=== PATIENT | female | born 1945 | race Hispanic/Latino ===

== ENCOUNTER 2021-10-16 12:23 | Day surgery (SDC) | payer MEDICARE, OTHER ==
[2021-10-16] MEDS ORDERED: NA CHLORIDE 0.9% 500 ML ONE (12:46)
[2021-10-16] MEDS ORDERED: TETRACAINE HCL 0.5% 4ML OPTH ONE (12:47)
[2021-10-16] MEDS ORDERED: PHENYLEPHRINE 2.5% OPTH 2 ML ONE (12:47)
[2021-10-16] MEDS ORDERED: CYCLOPENTOLATE 1% OPTH 2 ML ONE (12:47)
[2021-10-16] MEDS ORDERED: LIDOCAINE 2% INJ, 20 mL 0 ML ONE (12:53)
[2021-10-16] MEDS ORDERED: CYCLOPENTOLATE 1% OPTH 2 ML OPTH ONE ×3 (12:55→13:05)
[2021-10-16] MEDS ORDERED: PHENYLEPHRINE 10% OPTH 5ML OPTH ONE ×3 (12:55→13:05)
[2021-10-16] MEDS ORDERED: NA CIT/CITRIC AC 30 ML ORAL UDC ONE (13:18)
[2021-10-16] MEDS ORDERED: NA CIT/CITRIC AC 30 ML ORAL UDC PO ONE (13:20)
[2021-10-16] MEDS: TETRACAINE HCL 0.5% 4ML OPTH ONE ×2 (14:10→14:53)
[2021-10-16] MEDS: BUPIVACAINE 0.25% PF 10 ML VIAL ONE ×2 (14:10→14:53)
[2021-10-16] MEDS: LIDOCAINE 2% MPF 5 ML VIAL ONE ×2 (14:11→14:53)
[2021-10-16] MEDS ORDERED: BSS OPTHALMIC SOL 15 ML OPTH ONE (14:24)
[2021-10-16] MEDS ORDERED: POVIDONE-IODINE 5% EYE DROPS ONE (14:24)
[2021-10-16] MEDS ORDERED: DUOVISC 1 KIT OPTH ONE (14:24)
[2021-10-16] MEDS ORDERED: EPINEPHRINE/PF 1 MG/ML AMP ONE (14:24)
[2021-10-16] MEDS ORDERED: BALANCED SALT IRRIG PLAIN 500 ML IRR ONE (14:24)
[2021-10-16] MEDS ORDERED: LIDOCAINE 1% MPF 2 ML AMPULE ONE (14:25)
[2021-10-16] MEDS ORDERED: LIDOCAINE 2% MPF 5 ML VIAL ONE (14:35)
[2021-10-16] MEDS ORDERED: propofoL 200 MG/20 ML VIAL IV ONE (14:35)
[2021-10-16] MEDS ORDERED: HYDRALAZINE HCL 20 MG/ML VIAL ONE (15:13)
[2021-10-16] MEDS ORDERED: MOXIFLOXACIN HCL 10 DROPS/ML **OR USE OPTH ONE (15:23)
[2021-10-16 16:00] VITALS: BP 155/51; TEMP 97.3; O2SAT 97
--- NOTE | 2021-10-17 02:51 | OP ---
Date of Procedure: 10/16/2021 Surgeon: Radha Merida MD Anesthesiologist: Abhishek Tavarez CRNA and Arun Foss MD. 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 Operation Performed: Phacoemulsification with intraocular lens implant, left eye with toric intraocular lens. Anesthesia: Per cataract surgery. Complications: None. Description Of Procedure: In the operating room the patient was prepped and draped in the usual sterile fashion for ophthalmic surgery. A lid speculum was placed in the left eye. Two paracentesis sites were made superiorly and inferiorly in the limbal cornea. Lidocaine 1% preservative free then Viscoat were placed in the anterior chamber.A keratome was used to enter the anterior chamber. A 360 degree capsulotomy was performed with utrata forceps. The lens was hydrodissected with BSS and rotated freely. The lens was removed with a chop technique. 8.88 phaco CDE was used to remove the lens. Residual cortex was removed with the irrigation and aspiration. Provisc was placed in the capsular bag. A ISU188, +17.0 at 61 degrees lens was placed in the capsular bag without complications. Irrigation and aspiration was used to remove residual viscoelastic. The paracentesis sites were hydrated with BSS. The wound and paracentesis sites were inspected and found to be watertight. Vigamox 0.07 cc was placed intracamerally at the end of the procedure. The eye was irrigated with balanced salt solution. The eye was patched with a clear plastic shield. The patient was returned to day surgery in good condition. Comments: Extra Viscoat was used. Discharge Instructions: Ms. Smith is discharged to home in good condition. She is to follow up with Dr. Merida in the morning. ANISA/MODL Voice ID: [id number] Report ID: [id number] MONA
== END 2021-10-16 16:18 | disposition home or self-care (01) ==
LOC: OR 12:23
PROVIDERS: ATTEND Ophthalmology Retina Specialist
PROC: 08RK3JZ Replacement of Left Lens with Synthetic Substitute, Percutaneous Approach (ICD-10-PCS; principal; 2021-10-16 14:00)
DX: H25.812 Combined forms of age-related cataract, left eye (principal); H52.222 Regular astigmatism, left eye; Z20.822 Contact with and (suspected) exposure to COVID-19
CPT/HCPCS: 66984; U0003; J0360; J2704; J0171; J7040

== ENCOUNTER 2021-12-18 19:08 | Emergency (ER) | payer MEDICARE ==
[2021-12-18 20:19] LABS: Urine Blood Negative (Negative); Urine Glucose Negative (Negative); Urine Protein Negative (Negative); Urine pH 7.5 (5.0-7.0)
[2021-12-18] MEDS ORDERED: PANTOPRAZOLE 40 MG INJ ONE (20:22)
[2021-12-18] MEDS ORDERED: NA CHLORIDE 0.9% 1,000 ML ONE (20:22)
--- NOTE | 2021-12-18 21:10 | RAD REPORT ---
EXAM DESCRIPTION: Nadeem Single View12/18/2021 8:21 pm CLINICAL HISTORY: cough COMPARISON: none FINDINGS: The lungs appear clear of acute infiltrate. The heart is normal size IMPRESSION: No acute abnormalities displayed
[2021-12-18 21:18] LABS: Absolute Lymphocytes (CBC) 1.5 K/uL (0.7-4.9); Hematocrit 34.2 % (36.0-45.0); Lymphocytes % 26.6 % (15.3-44.8); MCV 92.8 fL (80-100); MPV 8.5 fL (7.6-11.3); Protime INR 0.96; RBC Red Blood Cell Count 3.68 M/uL (3.86-4.86)
[2021-12-18 21:21] LABS: SARS-CoV-2 Antigen Rapid Res Negative (Negative)
[2021-12-18 21:39] LABS: ALT/SGPT 20 U/L (12-78); AST/SGOT 14 U/L (15-37); Albumin 3.6 g/dL (3.4-5.0); Alkaline Phosphatase 61 U/L (45-117); BUN Blood Urea Nitrogen 13 mg/dL (7-18); Bicarbonate 28 mmol/L (21-32); Bilirubin Total 0.2 mg/dL (0.2-1.0); Glomerular Filtration Rate 85 ml/min (=/>90); Glucose Level 112 mg/dL (74-106); Lipase 343 U/L (73-393); Magnesium 2.4 mg/dL (1.8-2.4); NT PRO-BNP 286 pg/mL (<450); Protein, Total 6.9 g/dL (6.4-8.2); Sodium Level 136 mmol/L (136-145); Troponin High Sensitivity 17.4 pg/mL (<58.9)
[2021-12-18 21:47] LABS: Bilirubin Direct < 0.1 mg/dL (0-0.2)
[2021-12-18] MEDS ORDERED: MAGNES/ALUMIN/SIMET 30ML UCUP ONE (22:11)
[2021-12-18] MEDS ORDERED: CEFTRIAXONE 1000 MG/VIAL ONE (22:12)
[2021-12-18] MEDS ORDERED: LORazepam 2 MG/ML VIAL ONE (22:12)
[2021-12-18] MEDS ORDERED: LIDOCAINE VISCOUS 2% SOLN 15 ML UDC ONE (22:12)
[2021-12-18] MEDS ORDERED: lisinopriL 20 MG TAB ONE (22:15)
[2021-12-18] MEDS ORDERED: CIPROFLOXACIN HCL 500 MG TAB ONE (22:16)
--- NOTE | 2021-12-18 22:35 | ER ---
Nurse's Notes [facility] Name: Gilda Smith Age: 76 yrs Sex: Female : 1945 Arrival Date: 12/18/2021 Time: 19:13 Bed 30 Private MD: Diagnosis: Anxiety disorder, unspecified;Acute gastritis;Essential (primary) hypertension;UTI/ Urinary tract infection, site not specified Presentation: 12/18 19:57 Acuity: TANYA 3 lp1 19:57 Chief complaint: Patient states: Reports feeling like her blood pressure is high, lp1 feeling a continued burning sensation in abdomen, no relief with Pepcid at home; States she has been urinating a lot and feels she is dehydrated. Coronavirus screen: At this time, the client does not indicate any symptoms associated with coronavirus-19. Ebola Screen: No symptoms or risks identified at this time. Initial Sepsis Screen: Does the patient meet any 2 criteria? No. Patient's initial sepsis screen is negative. Does the patient have a suspected source of infection? No. Patient's initial sepsis screen is negative. Risk Assessment: Do you want to hurt yourself or someone else? Patient reports no desire to harm self or others. Onset of symptoms was December 18, 2021. 19:57 Method Of Arrival: Wheelchair lp1 Triage Assessment: 21:05 General: Appears distressed, uncomfortable, Behavior is cooperative, appropriate for eh3 age, anxious. 21:07 Pain: Denies pain. Neuro: Level of Consciousness is awake, alert, obeys commands, eh3 Oriented to person, place, time, situation. Cardiovascular: Capillary refill < 3 seconds Patient's skin is warm and dry. Respiratory: Airway is patent Respiratory effort is even, unlabored. GI: Abdomen is flat, non-distended, Bowel sounds present X 4 quads. Reports constipation, intolerance of food. : No signs and/or symptoms were reported regarding the genitourinary system. Derm: No signs and/or symptoms reported regarding the dermatologic system. Musculoskeletal: Reports cramping in bilateral lower legs. Historical: - Allergies: 19:59 No Known Allergies; lp1 - Home Meds: 19:59 metoprolol tartrate Oral [Active]; losartan oral [Active]; Nifedipine Oral [Active]; lp1 Sucralfate Oral [Active]; famotidine 20 mg Oral tab 1 tab 2 times per day [Active]; - PMHx: 19:59 Hypertension; Hypothyroidism; Myocardial infarction; lp1 - PSHx: 19:59 Heart stents; lp1 - Immunization history:: Adult Immunizations up to date. - Social history:: Smoking status: Patient denies any tobacco usage or history of. Screenin:35 Abuse screen: Denies threats or abuse. Denies injuries from another. Nutritional eh3 screening: No deficits noted. Tuberculosis screening: No symptoms or risk factors identified. Fall Risk IV access (20 points). Gait- Weak (10 pts.). Total Contreras Fall Scale indicates Low Risk Score (25-44 pts). Fall prevention measures have been instituted. Side Rails Up X 2 Placed close to Nursing Station Frequent Obs/Assesments occuring Family Present and informed to notify staff if they need to leave bedside As available Patient and Family Educated on Fall Prevention Program and strategies. Vital Signs: 19:57 BP 180 / 62; Pulse 70; Resp 18; Temp 98.6(O); Pulse Ox 100% on R/A; Weight 49.44 kg lp1 (R); Pain 4/10; 21:04 BP 187 / 68; Pulse 62; Resp 18; Pulse Ox 98% on R/A; eh3 22:12 BP 205 / 69; Pulse 64; Resp 16; Pulse Ox 96% on R/A; ld1 22:39 BP 145 / 64; Pulse 57; Resp 16; Pulse Ox 97% on R/A; eh3 ED Course: 19:13 Patient arrived in ED. ja2 19:40 Carlton Velasquez MD is Attending Physician. mary 19:52 Fartun Lai, NETTE is Primary Nurse. eh3 19:57 Triage completed. lp1 19:57 Arm band placed on. lp1 20:19 Urine Culture Sent. ld1 20:23 XRAY Chest (1 view) In Process Unspecified. EDMS 21:04 SARS RAPID Sent. eh3 21:04 Urine Culture Sent. eh3 21:04 Inserted saline lock: 20 gauge in left antecubital area, using aseptic technique. Blood eh3 collected. 22:33 Vivek Umanzor MD is Referral Physician. mary 22:35 Patient has correct armband on for positive identification. Bed in low position. Call eh3 light in reach. Side rails up X2. 22:35 No provider procedures requiring assistance completed. IV discontinued, intact, eh3 bleeding controlled, No redness/swelling at site. Pressure dressing applied. Administered Medications: 21:04 Drug: NS 0.9% 1000 ml Route: IV; Rate: 125 ml/hr; Site: left antecubital; eh3 21:04 Drug: ProTONIX (pantoprazole) 40 mg Route: IVP; Site: left antecubital; eh3 22:11 Drug: Rocephin (cefTRIAXone) 1 grams Route: IV; Rate: per protocol; Site: left ld1 antecubital; 22:11 Drug: Ativan (LORazepam) 1 mg Route: IVP; Site: left antecubital; ld1 22:12 Drug: GI Cocktail without - (Maalox Suspension 30 ml, Lidocaine Liquid 2 % 15 ld1 ml) Route: PO; Medication: 22:40 VIS not applicable for this client. eh3 Outcome: 22:34 Discharge ordered by MD. hernandez 22:35 Discharged to home via wheelchair. eh3 22:35 Condition: stable 22:41 Discharge instructions given to patient, friend, Instructed on discharge instructions, 3 follow up and referral plans. medication usage, Demonstrated understanding of instructions, follow-up care, medications, Prescriptions given X 4. 22:51 Patient left the ED. eh3 Signatures: Dispatcher [employer] Carlton Crump MD MD cha Pena, Laura, RN RN lp1 Elena French RN RN ld1 Iva Reilly Erin, RN RN 3
--- NOTE | 2021-12-18 22:36 | EDPHYS ---
Physician Documentation [facility] Name: Gilda Smith Age: 76 yrs Sex: Female : 1945 Arrival Date: 12/18/2021 Time: 19:13 Bed 30 Private MD: ED Physician Carlton Velasquez HPI: 12/18 20:16 This 76 yrs old Female presents to ER via Wheelchair with complaints of High mary Blood Pressure, Feels Hot. 20:16 The patient has elevated blood pressure and discovered this at home, with a home mary device. Onset: The symptoms/episode began/occurred 2 day(s) ago. Modifying factors: The symptoms are aggravated by activity, The symptoms are alleviated by remaining still. Associated signs and symptoms: Pertinent positives: nausea. Severity of symptoms: At its worst the blood pressure was moderate, in the emergency department the blood pressure is unchanged. The patient has experienced similar episodes in the past, a few times. Historical: - Allergies: 19:59 No Known Allergies; lp1 - Home Meds: 19:59 metoprolol tartrate Oral [Active]; losartan oral [Active]; Nifedipine Oral [Active]; lp1 Sucralfate Oral [Active]; famotidine 20 mg Oral tab 1 tab 2 times per day [Active]; - PMHx: 19:59 Hypertension; Hypothyroidism; Myocardial infarction; lp1 - PSHx: 19:59 Heart stents; lp1 - Immunization history:: Adult Immunizations up to date. - Social history:: Smoking status: Patient denies any tobacco usage or history of. ROS: 20:17 Constitutional: Negative for fever, chills, and weight loss, Eyes: Negative for injury, mary pain, redness, and discharge, ENT: Negative for injury, pain, and discharge, Neck: Negative for injury, pain, and swelling, Cardiovascular: Negative for chest pain, palpitations, and edema, Respiratory: Negative for shortness of breath, cough, wheezing, and pleuritic chest pain, Back: Negative for injury and pain, : Negative for injury, bleeding, discharge, and swelling, MS/Extremity: Negative for injury and deformity, Skin: Negative for injury, rash, and discoloration, Neuro: Negative for headache, weakness, numbness, tingling, and seizure, Psych: Negative for depression, anxiety, suicide ideation, homicidal ideation, and hallucinations, Allergy/Immunology: Negative for hives, rash, and allergies, Endocrine: Negative for neck swelling, polydipsia, polyuria, polyphagia, and marked weight changes, Hematologic/Lymphatic: Negative for swollen nodes, abnormal bleeding, and unusual bruising. 20:17 Abdomen/GI: Positive for abdominal pain, nausea. Exam: 20:17 Constitutional: This is a well developed, well nourished patient who is awake, alert, mary and in no acute distress. Head/Face: Normocephalic, atraumatic. Eyes: Pupils equal round and reactive to light, extra-ocular motions intact. Lids and lashes normal. Conjunctiva and sclera are non-icteric and not injected. Cornea within normal limits. Periorbital areas with no swelling, redness, or edema. ENT: Nares patent. No nasal discharge, no septal abnormalities noted. Tympanic membranes are normal and external auditory canals are clear. Oropharynx with no redness, swelling, or masses, exudates, or evidence of obstruction, uvula midline. Mucous membranes moist. Neck: Trachea midline, no thyromegaly or masses palpated, and no cervical lymphadenopathy. Supple, full range of motion without nuchal rigidity, or vertebral point tenderness. No Meningismus. Chest/axilla: Normal chest wall appearance and motion. Nontender with no deformity. No lesions are appreciated. Cardiovascular: Regular rate and rhythm with a normal S1 and S2. No gallops, murmurs, or rubs. Normal PMI, no JVD. No pulse deficits. Respiratory: Lungs have equal breath sounds bilaterally, clear to auscultation and percussion. No rales, rhonchi or wheezes noted. No increased work of breathing, no retractions or nasal flaring. Back: No spinal tenderness. No costovertebral tenderness. Full range of motion. Female : Normal external genitalia. Skin: Warm, dry with normal turgor. Normal color with no rashes, no lesions, and no evidence of cellulitis. MS/ Extremity: Pulses equal, no cyanosis. Neurovascular intact. Full, normal range of motion. Neuro: Awake and alert, GCS 15, oriented to person, place, time, and situation. Cranial nerves II-XII grossly intact. Motor strength 5/5 in all extremities. Sensory grossly intact. Cerebellar exam normal. Normal gait. Psych: Awake, alert, with orientation to person, place and time. Behavior, mood, and affect are within normal limits. 20:17 Abdomen/GI: Inspection: abdomen appears normal, Bowel sounds: normal, Palpation: abdomen is soft and non-tender, Rectal exam: is unremarkable, Liver: no appreciated palpable abnormalities, Hernia: not appreciated. 20:19 ECG was reviewed by the Attending Physician. [facility] Vital Signs: 19:57 BP 180 / 62; Pulse 70; Resp 18; Temp 98.6(O); Pulse Ox 100% on R/A; Weight 49.44 kg lp1 (R); Pain 4/10; 21:04 BP 187 / 68; Pulse 62; Resp 18; Pulse Ox 98% on R/A; eh3 22:12 BP 205 / 69; Pulse 64; Resp 16; Pulse Ox 96% on R/A; ld1 22:39 BP 145 / 64; Pulse 57; Resp 16; Pulse Ox 97% on R/A; eh3 MDM: 19:48 Patient medically screened. [facility] 20:18 Differential diagnosis: hypertensive crisis, Malignant HTN, Cholelithiasis, mary pancreatitis, Peptic Ulcer Disease, Pyelonephritis, urinary tract infection. Data reviewed: vital signs, nurses notes, lab test result(s), EKG, radiologic studies, CT scan, plain films. Data interpreted: potline monitor: rate is 70 beats/min, rhythm is regular, Pulse oximetry: on room air. Test interpretation: by ED physician or midlevel provider: ECG, plain radiologic studies. Counseling: I had a detailed discussion with the patient and/or guardian regarding: the historical points, exam findings, and any diagnostic results supporting the discharge/admit diagnosis, lab results, radiology results. 12/18 19:48 Order name: Basic Metabolic Panel; Complete Time: 21:51 [facility] 12/18 19:48 Order name: CBC with Diff; Complete Time: 21:51 [facility] 12/18 19:48 Order name: LFT's; Complete Time: 21:51 [facility] 12/18 19:48 Order name: Magnesium; Complete Time: 21:51 [facility] 12/18 19:48 Order name: NT PRO-BNP; Complete Time: 21:51 [facility] 12/18 19:48 Order name: PT-INR; Complete Time: 21:51 [facility] 12/18 19:48 Order name: Troponin HS; Complete Time: 21:51 [facility] 12/18 19:48 Order name: XRAY Chest (1 view); Complete Time: 21:51 [facility] 12/18 19:48 Order name: Lipase; Complete Time: 21:51 [facility] 12/18 19:48 Order name: Urine Culture [facility] 12/18 19:48 Order name: SARS RAPID; Complete Time: 21:51 [facility] 12/18 20:19 Order name: Urine Dipstick-Ancillary; Complete Time: 21:51 [facility] 12/18 19:48 Order name: EKG; Complete Time: 19:49 [facility] 12/18 19:48 Order name: Cardiac monitoring; Complete Time: 19:52 [facility] 12/18 19:48 Order name: EKG - Nurse/Tech; Complete Time: 20:02 [facility] 12/18 19:48 Order name: IV Saline Lock; Complete Time: 21:03 [facility] 12/18 19:48 Order name: Labs collected and sent; Complete Time: 21:03 [facility] 12/18 19:48 Order name: O2 Per Protocol; Complete Time: 19:52 [facility] 12/18 19:48 Order name: O2 Sat Monitoring; Complete Time: 19:53 [facility] 12/18 19:48 Order name: Urine Dipstick-Ancillary (obtain specimen); Complete Time: 20:19 [facility] EC:19 Rate is 72 beats/min. Rhythm is regular. QRS Murray is Normal. NE interval is normal. QRS mary interval is normal. QT interval is normal. No Q waves. T waves are Normal. No ST changes noted. Clinical impression: Normal ECG, NSR w/ Non-specific ST/T Changes, and No evidence of ischemia. Interpreted by me. Reviewed by me. Administered Medications: 21:04 Drug: NS 0.9% 1000 ml Route: IV; Rate: 125 ml/hr; Site: left antecubital; eh3 21:04 Drug: ProTONIX (pantoprazole) 40 mg Route: IVP; Site: left antecubital; eh3 22:11 Drug: Rocephin (cefTRIAXone) 1 grams Route: IV; Rate: per protocol; Site: left ld1 antecubital; 22:11 Drug: Ativan (LORazepam) 1 mg Route: IVP; Site: left antecubital; ld1 22:12 Drug: GI Cocktail without - (Maalox Suspension 30 ml, Lidocaine Liquid 2 % 15 ld1 ml) Route: PO; Disposition Summary: 12/18/21 22:34 Discharge Ordered Location: Home mary Problem: new mary Symptoms: have improved mary Condition: Stable mary Diagnosis - Anxiety disorder, unspecified mary - Acute gastritis mary - Essential (primary) hypertension mary - UTI/ Urinary tract infection, site not specified mary Followup: mary - With: Private Physician - When: 2 - 3 days - Reason: Recheck today's complaints, Continuance of care, Re-evaluation by your physician Followup: mary - With: Vivek Umanzor MD - When: 2 - 3 days - Reason: Recheck today's complaints, Continuance of care, Re-evaluation by your physician Discharge Instructions: - Discharge Summary Sheet mary - Hypertension, Adult mary - Urinary Tract Infection, Adult mary - Urinary Tract Infection, Adult, [id number] mary - Hypertension, Adult, [id number] mary - How to Take Your Blood Pressure, [id number] mary - Managing Your Hypertension mary - Managing Anxiety, Adult mary Forms: - Medication Reconciliation Form [facility] - Thank You Letter mary - Antibiotic Education mary - Prescription Opioid Use [facility] Prescriptions: - Carafate 1 gram Oral Tablet - take 1 tablet by ORAL route 4 times per day take on an empty stomach, beginning mary on waking and last dose at bedtime; 100 tablet; Refills: 0, Product Selection Permitted - Cipro 250 mg Oral Tablet - take 1 tablet by ORAL route every 12 hours; 14 tablet; Refills: 0, Product mary Selection Permitted - Protonix 40 mg Oral tablet,delayed release (DR/EC) - take 1 tablet by ORAL route every 12 hours; 40 tablet; Refills: 0, Product mary Selection Permitted - Xanax 0.5 mg Oral Tablet - take 1 tablet by ORAL route every 8 hours As needed; 20 tablet; Refills: 0, [facility] Product Selection Permitted Signatures: Dispatcher [employer] EDMS Carlton Velasquez MD MD cha Pena, Laura RN RN lp1 Elena French RN RN ld1 Fartun Lai RN RN eh3 Corrections: (The following items were deleted from the chart) 22:12 20:12 Abdomen Pelvis W [id number].[id number] ordered. EDMS EDMS
[2021-12-19 01:18] VITALS: TEMP 98.6
[2021-12-19 01:28] VITALS: BP 145/64; O2SAT 97
--- NOTE | 2021-12-19 13:50 | EKG ---
Test Date: 2021-12-18 Test Time: 19:59:58 Home Demonstration Agent: SARAH MEASUREMENT RESULTS: Intervals: Rate: 72 DC: 142 QRSD: 84 QT: 400 QTc: 438 [place]: P: 69 DC: 142 QRS: 62 T: 78 INTERPRETIVE STATEMENTS: Normal sinus rhythm with sinus arrhythmia Normal ECG Compared to ECG 06/07/2001 17:27:00 T-wave abnormality no longer present Prolonged QT interval no longer present Electronically Signed On 12-19-21 13:48:40 CDT by Luis Spears
== END 2021-12-18 22:51 | disposition home or self-care (01) ==
LOC: ER 19:08
DX: K29.00 Acute gastritis without bleeding (principal); N39.0 Urinary tract infection, site not specified; I10 Essential (primary) hypertension; F41.9 Anxiety disorder, unspecified; Z20.822 Contact with and (suspected) exposure to COVID-19; E03.9 Hypothyroidism, unspecified; Z95.5 Presence of coronary angioplasty implant and graft
CPT/HCPCS: 93005; 87088; 85025; 87086; 80048; 36415; 83735; 85610; 80076; 81003; 84484; 83690; 83880; 71045; 96375; 96374; 99284; 87811; C9113; J7030; 87077; 87186

== ENCOUNTER 2022-01-06 17:40 | Emergency (ER) | payer MEDICARE ==
--- OUTSIDE RECORDS SUMMARY | 2022-01-06 17:47 | XMS REPORT | Continuity of Care Document ---
:1945 Author Organization [facility] t Address [address] [place] [address] Care Team Providers Name Role Phone HOPE BARCLAY Primary Care Physician Unavailable Catracho Ruiz MD Attending Clinician LIZBETH KAPOOR Attending Clinician Unavailable Cherrie Combs Attending Clinician Unavailable Raymond LAND, William Wall Attending Clinician Bernadette-Mbayo_A_AH Attending Clinician Unavailable Miriam Wright Attending Clinician Iva Aly RN Attending Clinician Unavailable Erik PERDUE, Jadyn Attending Clinician Unavailable Dudley Prado DO Attending Clinician Kati Weeks MD Attending Clinician Antonio Pete MD Attending Clinician Doctor Unassigned, [place] Attending Clinician Unavailable Lokesh Olivier MD Attending Clinician Jermain Javier MD Attending Clinician LIZBETH KAPOOR Admitting Clinician Unavailable Bernadette-Mbayo_A_AH Admitting Clinician Unavailable Antonio Pete MD Admitting Clinician Jermain Javier MD Admitting Clinician Payers Payer Name Policy Type Policy Number Effective Date Expiration Date S kenzie [employer] [id number] 2021 MEDICARE ADVANTAGE 00:00:00 PLAN [employer] [id number] 2020 (MEDICARE 00:00:00 REPLACEMENT HMO) [employer] [place] - [id number] 2019 [place] (MEDICARE 00:00:00 REPLACEMENT/ADVANTA GE - HMO) [employer] [place] [id number] 2019 CLASSIC/VALUE 00:00:00 Problems Condition Condition Condition Status Onset Resolution Last Treating Co mments Source Name Details Category Date Date Treatment Clinician Date Chest pain Chest pain Disease Active U nivers 2-28 ity of 00:00: [place] [facility] Stenosis Stenosis Disease Active Unive rs of right of right 8-25 ity of carotid carotid 00:00: [place] artery artery 00 Medical Branch Hypertensi Hypertensi Disease Active U nivers ve urgency ve urgency 8-24 it y of 00:00: [place] [facility] Hyperlipid Hyperlipid Problem Active C ommon emia, emia, Spirit unspecifie unspecifie - [facility] hyperlipid hyperlipid Daniella [facility] emia type emia type [facility] Essential Essential Problem Active Com mon hypertensi hypertensi Sp ruth on on [facility] Acquired Acquired Problem Active Commo n hypothyroi hypothyroi Sp ruth dism dism [facility] Reflux Reflux Problem Active Common [facility] Difficulty Difficulty Problem Active C ommon sleeping sleeping [facility] Sinus Sinus Problem Active Common problem problem [facility] High High Problem Active Common cholestero cholestero Sp ruth l l [facility] Hyperglyce Hyperglyce Problem Active C ommon rohit rohit [facility] Hypertrigl Hypertrigl Problem Active C ommon yceridemia yceridemia Sp ruth [facility] Vitamin Vitamin Problem Active Common B12 B12 Spirit deficiency deficiency [facility] Rash and Rash and Problem Active Commo n nonspecifi nonspecifi Sp ruth c skin c skin - [facility] eruption eruption [facility] Elevated Elevated Problem Active Commo n vitamin vitamin Spirit B12 level B12 level - CH I [facility] Prediabete Prediabete Problem Active C ommon s s Spirit - CHI [facility] Noncomplia Noncomplia Diagnosis Active Common nce nce Spirit w/medicati w/medicati - [facility] on on [facility] treatment treatment Robert s due to due to Medical intermit intermit Center use of use of medication medication Hospital Hospital Problem Active Commo n discharge discharge Spir it follow-up follow-up - CH I [facility] Counseling Counseling Problem Active C ommon and and Spirit coordinati coordinati - [facility] on of care on of care [facility] Anxiety Anxiety Diagnosis Active Commo n Spirit - [facility] Allergies, Adverse Reactions, Alerts Allergy Allergy Status Severity Reaction(s) Onset Inactive Treating Comm ents Source Name Type Date Date Clinician gemma Adverse Active Info Not Commo n es Reaction Available Spiri t - [facility] NO KNOWN Drug Active Univers ALLERGIE Class ity of S [facility] Social History Social Habit Start Date Stop Date Quantity Comments Source History of Current smoker University of tobacco use [facility] Tobacco use and 2021-12-17 2021-12-17 Smokeless tobacco [facility] exposure 00:00:00 00:00:00 non-user Exposure to 2021-11-26 2021-12-06 Not sure [facility] SARS-CoV-2 00:00:00 17:35:00 [facility] (event) [place] Alcohol intake 2021-10-13 2021-10-13 Ex-drinker [facility] 00:00:00 00:00:00 (finding) Sex [birth year] [facility] 00:00:00 00:00:00 Smoking Status Start Date Stop Date Source Never smoked tobacco [facility] Ex-smoker 2019-12-21 00:00:00 2019-12-21 00:00:00 [facility] Medications Ordered Filled Start Stop Current Ordering Indication Dosage Frequency Signature Comments Components Source Medication Medication Date Date Medication? Clinician (SIG) Name Name clopidogreL Yes 75mg QD Take 1 Meth aubrey (PLAVIX) 75 8-22 tablet (75 st mg tablet 16:25: mg total) Hos juan j 01 by mouth l daily. NIFEdipine 2022-0 Yes 30mg QD Take 1 Metho di ER 8-22 tablet (30 st (PROCARDIA- 16:25: mg total) H ospita XL) 30 MG 01 by mouth l 24 hr daily. tablet famotidine 2021-0 Yes 20mg Q.5D Take 1 Metho di (PEPCID) 20 8-22 tablet (20 st MG tablet 16:25: mg total) Hos juan j 01 by mouth 2 l (two) times a day. losartan 0 Yes 50mg QD Take 1 Methodi (COZAAR) 50 8-22 tablet (50 st MG tablet 16:25: mg total) Hos juan j 01 by mouth l daily. sucralfate 2021-2021- Yes 1g Q.25D Take 1 Met hodi (Carafate) 12-17- tablet (1 st 1 gram 00:00: 04:59 g total) Hospit a tablet 00 :00 by mouth 4 l (four) times a day for 30 days. pantoprazol Yes 40mg 40 mg, Univ ers e 12-07 Slow IV ity of (PROTONIX) 13:00: Push, [place] injection 00 Q12H, Medical 40 mg First dose Branch on [place] 12/07/21 at 0800, Until Discontinu ed metoprolol 0 Yes 50mg Q.5D Take 50 mg M ethodi tartrate 6-[address] (LOPRESSOR) 22:32: (two) Hospi ta 50 mg 03 times a l tablet day. levothyroxi 0 Yes 88ug QD Take 88 Met hodi ne 6-[address] (SYNTHROID) 22:32: mouth Hospi ta 88 mcg 03 daily. l tablet losartan 0 Yes 50mg QD Take 50 mg Met hodi (COZAAR) 50 6-[address] MG tablet 22:32: daily. Hospit a 03 l sucralfate 2021-0 2021- No 1g Q.25D Take 1 Met hodi (Carafate) 6-17 07-18 tablet (1 st 1 gram 00:00: 04:59 g total) Hospit a tablet 00 :00 by mouth 4 l (four) times a day for 30 days. cefTRIAXone 2020-0 2020- No 1000mg 1,000 mg, Univers (ROCEPHIN) 08-18 IV ity of 1,000 mg in 01:00: 12:59 Piggyback, [place] NaCl 0.9% 00 :00 ONCE, 1 Medical (NS) 50 mL dose, [facility] MINI-BAG 08/17/20 at 2000, 50 mL
Reas on for Anti-Infec tive: Documented Infection< br>Documen serenity Infection Site: Urine
D uration of Therapy: 7 days maalox:diph No 15mL 15 mL, Uni vers enhydrAMINE 08-17 Oral, ity of :lidocaine 23:45: 23:45 ONCE, 1 [place] 2 % viscous 00 :00 dose, Wed Med ical 1:1:1 08/17/20 at Branch (FIRST-MOUT 184, [facility]) Routine oral suspension 15 mL ketorolac No 15mg 15 mg, Unive rs (TORADOL) 08-17 Slow IV ity of injection 23:45: 23:45 Push, [place] 15 mg 00 :00 ONCE, 1 Medical dose, [facility] Branch 08/17/20 at 1845, Routine
[employer] membership sales agent approving Restricted medication : MIRIAM ACOSTA dicyclomine No 20mg 20 mg, Uni vers (BENTYL) 08-17 Intramuscu ity of injection 23:45: 23:45 lar, ONCE, [place] 20 mg 00 :00 1 dose, Medical [facility] Branch 08/17/20 at 1845, Routine ondansetron No 4mg 4 mg, Slow Univers (ZOFRAN 08-17 IV Push, ity of (PF)) 23:45: 23:45 ONCE, 1 [place] injection 4 00 :00 dose, [facility] Med ical mg 08/17/20 at Branch 1845, ROMY famotidine No 20mg 20 mg, Univ ers (PEPCID 08-17 Slow IV ity of (PF)) 23:45: 23:45 Push, [place] injection 00 :00 ONCE, 1 Medical 20 mg dose, [facility] 08/17/20 at 1845, ROMY iohexol 2020- No [id number] 100mL 100 mL, U nivers (OMNIPAQUE 08-17 Intravenou it y of 350 22:45: 22:45 s, ONCE, 1 [place] BULK-100 00 :00 dose, Wed Medica l mL) 08/17/20 at [place] injection 1745, 100 mL Routine cephALEXin 2020- No [id number] 500mg Take 1 Univers 500 mg 08-17 capsule by ity of capsule 00:00: 04:59 mouth 2 [place] 00 :00 (two) Medical times [place] daily for 7 days. levothyroxi Yes 75ug 75 mcg, Uni vers ne 3-03 Oral, ity of (SYNTHROID) 12:00: QAM-0600, [place] tablet 75 00 First dose Medi samaria mcg (after [place] last modificati on) on Sat06/29/20 at 0600, Until Discontinu ed rosuvastati Yes 20mg 20 mg, Univ ers n (CRESTOR) 3-03 Oral, QHS, it y of tablet 20 03:00: First [place] mg 00 on Sat06/28/20 at Branch 2100, Until Discontinu ed, Routine levothyroxi Yes [id number] 75ug Take 1 Univers ne 75 mcg 3-03 tablet by ity o f tablet 00:00: mouth [place] 00 every Medical morning. Branch aspirin 81 0 Yes [id number] 81mg Take 1 U nivers mg chewable 3-03 tablet by ity of tablet 00:00: mouth [place] 00 daily. Medical Branch pantoprazol Yes [id number] 40mg Take 1 Univers e 40 mg EC 3-03 tablet by ity of tablet 00:00: mouth [place] 00 daily. Medical Branch losartan 2020-0 Yes [id number] 100mg Take 1 Un sylvia 100 mg 3-03 tablet by ity of tablet 00:00: mouth [place] 00 daily. Medical Branch amLODIPine Yes [id number] 5mg Take 1 U nivers 5 mg tablet 3-03 tablet by ity of 00:00: mouth [place] 00 daily. Medical Branch levothyroxi Yes [id number] 75ug Take 1 Univers ne 75 mcg 3-03 tablet by ity o f tablet 00:00: mouth [place] 00 every Medical morning. Branch aspirin 81 0 Yes [id number] 81mg Take 1 U nivers mg chewable 3-03 tablet by ity of tablet 00:00: mouth [place] 00 daily. Medical Branch pantoprazol 2020-0 Yes [id number] 40mg Take 1 Univers e 40 mg EC 3-03 tablet by ity of tablet 00:00: mouth [place] 00 daily. Medical Branch losartan 2020-0 Yes [id number] 100mg Take 1 Un sylvia 100 mg 3-03 tablet by ity of tablet 00:00: mouth [place] 00 daily. Medical Branch amLODIPine 2020-0 Yes [id number] 5mg Take 1 U nivers 5 mg tablet 3-03 tablet by ity of 00:00: mouth [place] 00 daily. Medical Branch levothyroxi 0 Yes [id number] 75ug Take 1 Univers ne 75 mcg 3-03 tablet by ity o f tablet 00:00: mouth [place] 00 every Medical morning. Branch aspirin 81 0 Yes [id number] 81mg Take 1 U nivers mg chewable 3-03 tablet by ity of tablet 00:00: mouth [place] 00 daily. Medical Branch pantoprazol 0 Yes [id number] 40mg Take 1 Univers e 40 mg EC 3-03 tablet by ity of tablet 00:00: mouth [place] 00 daily. Medical Branch losartan 2020-0 Yes [id number] 100mg Take 1 Un sylvia 100 mg 3-03 tablet by ity of tablet 00:00: mouth [place] 00 daily. Medical Branch amLODIPine 2020-0 Yes [id number] 5mg Take 1 U nivers 5 mg tablet 3-03 tablet by ity of 00:00: mouth [place] 00 daily. Medical Branch levothyroxi 0 Yes [id number] 75ug Take 1 Univers ne 75 mcg 3-03 tablet by ity o f tablet 00:00: mouth [place] 00 every Medical morning. Branch aspirin 81 2020-0 Yes [id number] 81mg Take 1 U nivers mg chewable 3-03 tablet by ity of tablet 00:00: mouth [place] 00 daily. Medical Branch pantoprazol 2020-0 Yes [id number] 40mg Take 1 Univers e 40 mg EC 3-03 tablet by ity of tablet 00:00: mouth [place] 00 daily. Medical Branch losartan 2020-0 Yes [id number] 100mg Take 1 Un sylvia 100 mg 3-03 tablet by ity of tablet 00:00: mouth [place] 00 daily. Medical Branch amLODIPine Yes [id number] 5mg Take 1 U nivers 5 mg tablet 3-03 tablet by ity of 00:00: mouth [place] 00 daily. Medical Branch levothyroxi Yes [id number] 75ug Take 1 Univers ne 75 mcg 3-03 tablet by ity o f tablet 00:00: mouth [place] 00 every Medical morning. Branch aspirin 81 Yes [id number] 81mg Take 1 U nivers mg chewable 3-03 tablet by ity of tablet 00:00: mouth [place] 00 daily. Medical Branch pantoprazol Yes [id number] 40mg Take 1 Univers e 40 mg EC 3-03 tablet by ity of tablet 00:00: mouth [place] 00 daily. Medical Branch losartan Yes [id number] 100mg Take 1 Un sylvia 100 mg 3-03 tablet by ity of tablet 00:00: mouth [place] 00 daily. Medical Branch amLODIPine Yes [id number] 5mg Take 1 U nivers 5 mg tablet 3-03 tablet by ity of 00:00: mouth [place] 00 daily. Medical Branch perflutren 2020- No 3mL 3 mL, IV Un sylvia protein-A 06-28 Push, ity of microsphr 22:15: 16:10 ONCE, 1 [place] (OPTISON) 00 :00 dose, Tue Medic al injection 3 06/28/20 at [facility] mL 1615, Routine Levothyroxi 2020- No 100ug Take 100 Univers ne 100 mcg 06-2802 mcg by ity of capsule 19:40: 00:00 mouth [place] 22 :00 daily. Medical Branch losartan 25 2020- No 25mg Take 25 mg Univers mg tablet 06-28-02 by mouth ity o f 19:40: 00:00 daily. [place] 22 :00 Medical Branch metoprolol 2020- No 25mg Take 25 mg Univers succinate 06-28-02 by mouth ity o f XL 25 mg 24 19:40: 00:00 daily. Jayme as hr tablet 22 :00 Medical Branch magnesium 2021-0 Yes 800mg 800 mg, Univ ers oxide 06-28 Oral, ity of (MAG-OX 19:00: DAILY, [place] 400) tablet 00 First dose Me dical 800 mg on Sat06/28/20 at 1300, Until Discontinu ed, Routine sulfur 2020- No 5mL 5 mL, Univers hexafluorid 06-28 Intravenou i ty of e microsphr 16:00: 16:00 s, ONCE, 1 [place] (LUMASON) 00 :00 dose, Tue Medic al injection 5 06/28/20 at [facility] mL 1000, Routine
[employer]obile [employer] membership sales agent approving Restricted medication : PIORT JUDITH DONNELL LANEMUNA MOHAMED calcium Yes 1{tbl} 250 mg (1 Uni vers carbonate-v 06-28 tablet), ity of itamin D3 15:00: Oral, [place] (OSCAL-250 00 DAILY, Medical + D) First dose Branch 250-125 on Sat mg-unit per 06/28/20 at tablet 250 0900, mg Until Discontinu ed, Routine amLODIPine Yes 5mg 5 mg, Univer s (NORVASC) 06-28 Oral, ity of tablet 5 mg 15:00: DAILY, [place] 00 First dose Medical on Sat06/28/20 at 0900, Until Discontinu ed, Routine losartan Yes 100mg 100 mg, Unive rs (COZAAR) 06-28 Oral, ity of tablet 100 15:00: DAILY, [place] mg 00 First dose Medical (after Branch last modificati on) on Sat06/28/20 at 0900, Until Discontinu ed, Routine KCL 2020- No 30meq 30 mEq, IV Unive rs (POTASSIUM 06-28 Piggyback, it y of CHLORIDE) 14:00: 17:03 ONCE, 1 [place] 30 mEq in 00 :00 dose, Tue Medic al NaCl 0.9% 06/28/20 at [facility] h (NS) 0800, 250 piggyback mL KCL 2020- No 40meq 40 mEq, Univers (KLOR-CON 06-28 Oral, ity of M20) tablet 14:00: 16:45 ONCE, 1 [place] 40 mEq 00 :00 dose, Tue Medical 06/28/20 at Branch 0800, Routine ticagrelor 2020-0 Yes 90mg 90 mg, Unive rs (BRILINTA) 3-02 Oral, BID, ity of tablet 90 02:00: First dose [place] mg 00 on Sat [facility] 06/27/20 at Branch 2000, Until Discontinu ed, Routine metoprolol 2020-0 Yes [id number] 50mg Take 1 U nivers tartrate 50 3-02 tablet by ity of mg tablet 00:00: mouth 2 [place] 00 (two) Medical times Branch daily. rosuvastati 2020-0 Yes [id number] 20mg Take 1 Univers n 20 mg 3-02 tablet by ity of tablet 00:00: mouth at [place] 00 bedtime. Medical Branch ticagrelor 2020-0 Yes [id number] 90mg Take 1 U nivers (BRILINTA) 3-02 tablet by ity of 90 mg 00:00: mouth 2 [place] tablet 00 (two) Medical times Branch daily. metoprolol 2020-0 Yes [id number] 50mg Take 1 U nivers tartrate 50 3-02 tablet by ity of mg tablet 00:00: mouth 2 [place] 00 (two) Medical times Branch daily. rosuvastati 2020-0 Yes [id number] 20mg Take 1 Univers n 20 mg 3-02 tablet by ity of tablet 00:00: mouth at [place] 00 bedtime. Medical Branch ticagrelor 2020-0 Yes [id number] 90mg Take 1 U nivers (BRILINTA) 3-02 tablet by ity of 90 mg 00:00: mouth 2 [place] tablet 00 (two) Medical times Branch daily. metoprolol 2020-0 Yes [id number] 50mg Take 1 U nivers tartrate 50 3-02 tablet by ity of mg tablet 00:00: mouth 2 [place] 00 (two) Medical times Branch daily. rosuvastati 2020-0 Yes [id number] 20mg Take 1 Univers n 20 mg 3-02 tablet by ity of tablet 00:00: mouth at [place] 00 bedtime. Medical Branch ticagrelor 2020-0 Yes [id number] 90mg Take 1 U nivers (BRILINTA) 3-02 tablet by ity of 90 mg 00:00: mouth 2 [place] tablet 00 (two) Medical times Branch daily. metoprolol Yes [id number] 50mg Take 1 U nivers tartrate 50 3-02 tablet by ity of mg tablet 00:00: mouth 2 [place] 00 (two) Medical times Branch daily. rosuvastati Yes [id number] 20mg Take 1 Univers n 20 mg 3-02 tablet by ity of tablet 00:00: mouth at [place] 00 bedtime. Medical Branch ticagrelor Yes [id number] 90mg Take 1 U nivers (BRILINTA) 3-02 tablet by ity of 90 mg 00:00: mouth 2 [place] tablet 00 (two) Medical times Branch daily. metoprolol Yes [id number] 50mg Take 1 U nivers tartrate 50 3-02 tablet by ity of mg tablet 00:00: mouth 2 [place] 00 (two) Medical times Branch daily. rosuvastati Yes [id number] 20mg Take 1 Univers n 20 mg 3-02 tablet by ity of tablet 00:00: mouth at [place] 00 bedtime. Medical Branch ticagrelor Yes [id number] 90mg Take 1 U nivers (BRILINTA) 3-02 tablet by ity of 90 mg 00:00: mouth 2 [place] tablet 00 (two) Medical times Branch daily. ticagrelor 2020- No [id number] 90mg Take 1 Univers 90 mg 3-02 03-02 tablet by ity of tablet 00:00: 00:00 mouth 2 [place] 00 :00 (two) Medical times Branch daily. ticagrelor 2020- No [id number] 90mg Take 1 Univers (BRILINTA) 3-02 03-02 tablet by ity of 90 mg 00:00: 00:00 mouth 2 [place] tablet 00 :00 (two) Medical times Branch daily. adenosine 6 2020- No TITRATE - Univers mg/1000 mL 06-27 FOR ity of INTRACORONA 16:12: 16:12 PROCEDURE [place] RY 29 :29 USE, 1 Medical injection dose, Branch for CATH Starting LAB Sat06/27/20 at 1012, Until Sat06/27/20 at 1012, Routine nitroglycer 2020- No Intravenou Univers in (TRIDIL) 06-27 s, TITRATE i ty of 2 mg in 10 16:11: 16:11 - FOR [place] mL D5W for 14 :14 PROCEDURE Medi samaria Cardiac USE, 1 Branch Cath dose, Starting 06/27/20 at 1011, Until Sat06/27/20 at 1011, Routine tirofiban 2020- No IV Univers (AGGRASTAT) 06-27 Infusion, it y of 5 mg in 100 16:10: 16:10 CONTINUOUS [place] mL NS (RTU) 02 :02 PRN, Medical IV infusion Starting Bran ch 06/27/20 at 1010, Until Sat06/27/20 at 1010 tirofiban 2020- No Intravenou U nivers (AGGRASTAT 06-27 s, TITRATE it y of CONCENTRATE 16:07: 16:07 - FOR [place] ) injection 56 :56 PROCEDURE Med ical USE, 1 Branch dose, Starting Sat06/27/20 at 1007, Until Sat06/27/20 at 1007, Routine adenosine 6 2020- No TITRATE - Univers mg/1000 mL 06-27 FOR ity of INTRACORONA 16:04: 16:04 PROCEDURE [place] RY 15 :15 USE, 1 Medical injection dose, Branch for CATH Starting LAB Sat06/27/20 at 1004, Until Sat06/27/20 at 1004, Routine nitroglycer 2020- No Intravenou Univers in (TRIDIL) 06-27 s, TITRATE i ty of 2 mg in 10 15:54: 15:54 - FOR [place] mL D5W for 39 :39 PROCEDURE Medi samaria Cardiac USE, 1 Branch Cath dose, Starting Sat06/27/20 at 0954, Until Sat06/27/20 at 0954, Routine ticagrelor 2020- No Oral, Unive rs (BRILINTA) 06-27 TITRATE - ity of tablet 15:39: 15:39 FOR [place] 48 :48 PROCEDURE Medical USE, 1 Branch dose, Starting 06/27/20 at 0939, Until Sat06/27/20 at 0939, Routine nitroglycer 2020- No Intravenou Univers in (TRIDIL) 06-27 s, TITRATE i ty of 2 mg in 10 15:26: 15:26 - FOR [place] mL D5W for 01 :01 PROCEDURE Medi samaria Cardiac USE, 1 Branch Cath dose, Starting 06/27/20 at 0926, Until 06/27/20 at 0926, Routine FENTanyl PF 2020- No Slow IV Un sylvia (SUBLIMAZE 06-27 Push, ity of (PF)) 15:22: 15:22 TITRATE - [place] injection 17 :17 FOR Medical PROCEDURE Branch USE, 1 dose, Starting 06/27/20 at 0922, Until 06/27/20 at 0922, Routine midazolam 2020- No IV Push, Uni vers (VERSED) 06-27 TITRATE - ity o f injection 15:22: 15:22 FOR [place] 13 :13 PROCEDURE Medical USE, 1 Branch dose, Starting 06/27/20 at 0922, Until Sat06/27/20 at 0922, Routine lidocaine 2020- No Infiltrati U nivers 1% (PF) 06-27 on, ity of (XYLOCAINE) 15:19: 15:19 TITRATE - [place] injection 24 :24 FOR Medical PROCEDURE Branch USE, 1 dose, Starting Sat06/27/20 at 0919, Until Sat06/27/20 at 0919, Routine FENTanyl PF 2020- No Slow IV Un sylvia (SUBLIMAZE 06-27 Push, ity of (PF)) 15:12: 15:12 TITRATE - [place] injection 12 :12 FOR Medical PROCEDURE Branch USE, 1 dose, Starting 06/27/20 at 0912, Until Sat06/27/20 at 0912, Routine midazolam 2020- No IV Push, Uni vers (VERSED) 06-27 TITRATE - ity o f injection 15:12: 15:12 FOR [place] 05 :05 PROCEDURE Medical USE, 1 Branch dose, Starting Sat06/27/20 at 0912, Until Sat06/27/20 at 0912, Routine aspirin Yes 81mg 81 mg, Univers chewable 06-27 Oral, ity of tablet 81 15:00: DAILY, [place] mg 00 First dose Medical on Sat Branch 06/27/20 at 0900, Until Discontinu ed, Routine levothyroxi No 88ug 88 mcg, Un sylvia ne 06-27 Oral, ity of (SYNTHROID) 12:00: 14:56 QAM-0600, [place] tablet 88 00 :07 First dose Medi samaria mcg (after [place] last modificati on) on 06/27/20 at 0600, Until Discontinu ed atorvastati No 80mg 80 mg, Uni vers n (LIPITOR) 06-27 Oral, QHS, i ty of tablet 80 03:00: 14:58 First dose [place] mg 00 :40 on [facility] 06/26/20 at Branch 2100, Until Discontinu ed, Routine hydrOXYzine No 10mg 10 mg, Uni vers (ATARAX) 06-26 Oral, ity of tablet 10 19:00: 18:44 ONCE, 1 [place] mg 00 :00 dose, [facility] 06/26/20 at Branch 1300, Routine heparin No 12U/kg/ 12 Univer s 25,000 06-2602 h Units/kg/h ity of Units/250 18:41: 00:18 r ?59 kg Jayme as mL 20 :41 (7.08 Medical (Premixed mL/hr), IV Bran ch Bag) in Infusion, 0.45 % NS TITRATE, Parameters in Admin. Instr., Starting [place] 06/26/20 at 1241
CA UTION - If LMWH given in ER, AVOID bolus and start next dose/drip 12 hrs after ER dosage.&nb sp; M ust program rate using programmab le infusion pump.&nbsp ; Luiza ck with the ordering provider first prior to any administra tion should the patient be on existing/a dditional anticoagul ant therapy. Rang e, Dosing and Testing: &nbs p;FOR [facility], AND [facility] ONLY &nbs p; - aPTT < 35: & nbsp;Bolus 5000 units, increase rate 300 units/hr&n bsp; - aPTT 35-44:&nbs p; Kirit lavell 3000 units, increase rate 200 units/hr&n bsp; - aPTT 45-54:&nbs p; In crease rate 100 units/hr&n bsp; - aPTT 55-85:&nbs p;&nbs p;NO CHANGE&nbs p; - aPTT 86-95:&nbs p; De crease rate 100 units/hr&n bsp; - aPTT 96-120:&nb sp; H old 30 minutes, decrease rate 150 units/hr&n bsp; - aPTT > 120: Hold 60 minutes, decrease rate 200 units/hr&n bsp; Check aPTT 6 hours after initiation , then Q6H after every change, aPTT Q12H once therapeuti c levels are reached.&a mp;nbsp;&n bsp; ____ &nbs p; FO [facility] ONLY - aPTT < 40: & nbsp;Bolus 5000 units, increase rate 300 units/hr&n bsp; - aPTT 40-49:&nbs p; Kirit lavell 3000 units, increase rate 200 units/hr&n bsp; - aPTT 50-59:&nbs p; In crease rate 100 units/hr&n bsp; - aPTT 60-85:&nbs p; NO CHANGE&nbs p; - aPTT 86-95:&nbs p; De crease rate 100 units/hr&n bsp; - aPTT 96-120:&nb sp; H old 30 minutes, decrease rate 150 units/hr&n bsp; - aPTT > 120: Hold 60 minutes, decrease rate 200 units/hr&n bsp; Check aPTT 6 hours after initiation , then Q6H after every change, aPTT Q12H once therapeuti c levels are reached.&n bsp; DO NOT ADJUST INITIAL BOLUS OR INITIAL INFUSION RATE.
metoprolol Yes 50mg 50 mg, Unive rs tartrate 06-26 Oral, BID, ity o f (LOPRESSOR) 18:00: First dose [place] tablet 50 00 on [place] Medical mg 06/26/20 at Branch 1200, Until Discontinu ed, Routine HEPARIN No 60U/kg 3,540 Univer s SODIUM 06-26 02-28 Units (60 ity of (PORCINE) 17:45: 18:53 Units/kg Jayme as 1,000 00 :00 ?59 kg), Medical UNIT/ML IV Push, Branch BOLUS ACS ONCE, 1 ORDER SET dose, [place] 06/26/20 at 1145, Routine hydrALAZINE Yes 10mg 10 mg, Univ ers (APRESOLINE 06-26 Oral, ity of ) tablet 10 15:22: Q6HPRN, Jayme as mg 16 Starting Medical Pending Sale To [facility] 06/26/20 at 0922, Until Discontinu ed, Routine, sbp > 180 , dbp > 110 pantoprazol Yes 40mg 40 mg, Univ ers e 06-26 Oral, ity of (PROTONIX) 15:00: DAILY, [place] EC tablet 00 First dose Medi samaria 40 mg on [place] Branch 06/26/20 at 0900, Until Discontinu ed, Routine simethicone Yes 80mg 80 mg, Univ ers (GAS RELIEF 06-26 Oral, ity of (SIMETHICON 15:00: PC+HS, [place] E)) 00 First dose Medical chewable on [place] Branch tablet 80 06/26/20 at mg 0900, Until Discontinu ed, Routine losartan No 50mg 50 mg, Univer s (COZAAR) 2-06-27 Oral, ity of tablet 50 15:00: 16:43 DAILY, [place] mg 00 :13 First dose Medical on Pending Sale To [facility] 06/26/20 at 0900, Until Discontinu ed, Routine dicyclomine Yes 10mg 10 mg, Univ ers (BENTYL) 06-26 Oral, QID, ity o f capsule 10 14:00: [place] 00 on [facility] 06/26/20 at Branch 0800, Until Discontinu ed, Routine levothyroxi 2020- No 100ug 100 mcg, Univers ne 06-26 Oral, ity of (SYNTHROID) 12:00: 14:17 QAM-0600, [place] tablet 100 00 :58 First dose Med ical mcg on Pending Sale To [facility] 06/26/20 at 0600, Until Discontinu ed acetaminoph Yes 650mg 650 mg, Un sylvia en 06-26 Oral, ity of (TYLENOL) 10:11: Q6HPRN, [place] tablet 650 44 Starting Medic al mg Pending Sale To [facility] 06/26/20 at 0411, Until Discontinu ed, Routine, Pain (scale 1-3) alum-mag 2020- No 30mL 30 mL, Univer s hydroxide-s 06-26 Oral, ity of imeth 07:15: 06:09 ONCE, 1 [place] (MAALOX 00 :00 dose, [facility] PLUS / 06/26/20 at [place] MAG-AL 0115, ROMY PLUS) 200-200-20 mg/5 mL suspension 30 mL iohexol 2020- No 120mL 120 mL, Unive rs (OMNIPAQUE 06-26 Intravenou it y of 350 05:00: 04:40 s, ONCE, 1 [place] BULK-100 00 :00 dose, Sat Medica l mL) 06/25/20 at [place] injection 2300, 120 mL Routine ondansetron 2020- No 4mg 4 mg, Slow Univers (ZOFRAN 06-26 IV Push, ity of (PF)) 04:45: 03:55 ONCE, 1 [place] injection 4 00 :00 dose, Sat Med ical mg 06/25/20 at Branch 2245, Routine nitroglycer 2021-0 Yes .4mg 0.4 mg, Uni vers in 2- Sublingual ity of (NITROSTAT) 04:19: , Q5MIN Jayme as sublingual 12 PRN, Medical tablet 0.4 Starting Branc h mg 06/25/20 at 2219, Until Discontinu ed, Routine, Chest pain lisinopriL 2019-0 2020- No [id number] 10mg Take 1 Univers 10 mg 12-22 tablet by ity of tablet 00:00: 04:59 mouth [place] 00 :00 daily for Medical 30 days. Branch lisinopriL 2019-0 2020- No [id number] 10mg Take 1 Univers 10 mg 12-22 tablet by ity of tablet 00:00: 04:59 mouth [place] 00 :00 daily for Medical 30 days. Branch Levothyroxi 2019-0 Yes 100ug Take 100 U nivers ne 100 mcg 8-25 mcg by ity of capsule 23:54: mouth [place] 40 daily. Medical Branch Levothyroxi 2019-0 Yes 100ug Take 100 U nivers ne 100 mcg 8-25 mcg by ity of capsule 23:54: mouth [place] 40 daily. Medical Branch Levothyroxi 2019-0 Yes 100ug Take 100 U nivers ne 100 mcg 8-25 mcg by ity of capsule 23:54: mouth [place] 40 daily. Medical Branch metoprolol 2019-0 2020- No 25mg Take 25 mg Univers succinate 8-25 08-25 by mouth ity o f XL 25 mg 24 23:06: 00:00 daily. Jayme as hr tablet 53 :00 Medical Branch lisinopriL 2019-0 Yes 10mg 10 mg, Unive rs (PRINIVIL,Z 8-25 Oral, ity of ESTRIL) 14:00: DAILY, [place] tablet 10 00 First dose Medi samaria mg on [facility] 12/22/19 at 0900, Until Discontinu ed, Routine carvediloL 2019-0 Yes 25mg 25 mg, Unive rs (COREG) 8-25 Oral, BID ity of tablet 25 13:00: MEALS, [place] mg 00 First dose Medical on [facility] 12/22/19 at 0800, Until Discontinu ed, Routine levothyroxi 2019-0 Yes 100ug 100 mcg, U nivers ne 8-25 Oral, ity of (SYNTHROID) 11:00: QAM-0600, [place] tablet 100 00 First dose Med ical mcg on Sat Branch 12/22/19 at 0600, Until Discontinu ed ALPRAZolam Yes .25mg 0.25 mg, Un sylvia (XANAX) 8-25 Oral, ity of tablet 0.25 01:40: QHSPRN, [place] mg 55 Starting Medical Mon Branch 12/21/19 at 2040, Until Discontinu ed, Routine, anxiety carvediloL 2019- No [id number] 25mg Take 1 Univers 25 mg 8-21 01- tablet by ity of tablet 00:00: 04:59 mouth 2 [place] 00 :00 (two) Medical times [place] daily with meals for 30 days. citalopram 2019- No [id number] 10mg Take 1 Univers (CELEXA) 10 12-21 tablet by it y of mg tablet 00:00: 04:59 mouth [place] 00 :00 daily for Medical 30 days. Branch carvediloL 2019- No [id number] 25mg Take 1 Univers 25 mg 12-21- tablet by ity of tablet 00:00: 04:59 mouth 2 [place] 00 :00 (two) Medical times [place] daily with meals for 30 days. citalopram 2019- No [id number] 10mg Take 1 Univers (CELEXA) 10 12-21 tablet by it y of mg tablet 00:00: 04:59 mouth [place] 00 :00 daily for Medical 30 days. Branch HYDROcodone 2020- No 1{tbl} 1 tablet, Univers -acetaminop 12-20 Oral, ity of hen (NORCO 23:47: 23:46 Q6HPRN, [place] as 5) 5-325 mg 34 :34 Starting Medi samaria tablet 1 Mon Branch tablet 12/21/19 at 1847, Until 12/23/19 at 1846, Routine, Pain (scale 4-6) acetaminoph 0 Yes 650mg 650 mg, Un sylvia en 12-20 Oral, ity of (TYLENOL) 23:47: Q6HPRN, [place] tablet 650 29 Starting Medic al mg Mon Branch 12/21/19 at 1847, Until Discontinu ed, Routine, Pain (scale 1-3) LORazepam 2020-0 2020- No .5mg 0.5 mg, Univ ers (ATIVAN) 12-20 Slow IV ity of injection 23:15: 22:14 Push, [place] 0.5 mg 00 :00 ONCE, 1 Medical dose, [facility] 12/21/19 at 1815, STAT labetaloL 2019-0 2020- No 10mg 10 mg, Unive rs (NORMODYNE) 12-20 Slow IV ity of injection 22:30: 22:24 Push, [place] 10 mg 00 :00 ONCE, 1 Medical dose, [facility] 12/21/19 at 1730, ROMY hydralAZINE 2019-0 Yes 10mg 10 mg, Univ ers (APRESOLINE 12-20 Intravenou it y of ) injection 22:22: s, Q4HPRN, [place] 10 mg 35 Starting Medical [facility] 12/21/19 at 1722, Until Discontinu ed, Routine, SBP > 180, DBP > 110 labetaloL 2019-0 2020- No 10mg 10 mg, Unive rs (NORMODYNE) 12-20 Slow IV ity of injection 21:15: 20:24 Push, [place] 10 mg 00 :00 ONCE, 1 Medical dose, [facility] 12/21/19 at 1615, ROMY acetaminoph 2019-0 2020- No 975mg 975 mg, U nivers en 12-20 Oral, ity of (TYLENOL) 21:15: 20:23 ONCE, 1 [place] tablet 975 00 :00 dose, Mon Medi samaria mg 12/21/19 at Branch 1615, ROMY ondansetron 2019-0 2020- No 4mg 4 mg, Slow Univers (ZOFRAN 12-20 IV Push, ity of (PF)) 21:15: 20:23 ONCE, 1 [place] injection 4 00 :00 dose, Mon Med ical mg 12/21/19 at Branch 1615, ROMY Metoprolol Metoprolol 2020-0 Yes Katheryn 1 tablet Common Succinate Succinate 8-14 [facility]: - [facility] 00 [facility] metoprolol 2020-0 Yes 25mg QD Take 1 Metho di succinate 8-14 tablet (25 st XL 00:00: mg total) [facility]osp[facility] (TOPROL-XL) 00 by mouth l 25 mg 24 hr daily. tablet Trazodone Trazodone 2019-0 Yes Katheryn 1/2 to 1 Common HCl HCl 2-12 [place] tablet at Spiri t 00:00: bedtime as - [facility] 00 needed for [facility] Levothyroxi Levothyroxi Yes Katheryn 1 tablet Common ne Sodium ne Sodium [facility] on an Spirit empty - [facility] stomach in [facility] B-12 B-12 Yes Katheryn as Common [facility]ender directed [facility] Losartan Losartan Yes Katheryn 1 tablet Co mmon Potassium Potassium Mill[facility] Calcium Calcium Yes Katheryn 1 tab Common [facility] Lisinopril Lisinopril Yes Katheryn 1 tablet Common [facility] Celexa Celexa Yes Katheryn 1 tablet Common [facility] Coreg Coreg Yes Katheryn 1 tablet Common Millender with food Spiri t - [facility] Vital Signs Vital Name Observation Time Observation Value Comments Source Systolic blood 2021-12-07 01:00:00 151 [facility]Hg[facility] 2021-12-07 01:00:00 59 mm[Hg] Unive [facility] Heart rate 2021-12-07 01:00:00 87 /min [facility] Respiratory rate 2021-12-07 01:00:00 11 /min [facility] Oxygen saturation in 2021-12-07 00:44:00 100 /min [facility] Arterial blood by [facility] Pulse oximetry Branch Body temperature 2021-12-06 23:10:54 36.72 [facility] Body height 2021-12-06 22:34:00 157.5 cm [facility] Body weight 2021-12-06 22:34:00 47.628 kg [facility] BMI 2021-12-06 22:34:00 19.20 kg/m2 [facility] Systolic blood 2020-08-17 22:34:24 166 mm[Hg] Univer sity [facility] Diastolic blood 2020-08-17 22:34:24 88 mm[Hg] Unive rsity of pressure [place] [facility] Heart rate 2020-08-17 22:34:24 81 /min [facility] [place] [facility] Body temperature 2020-08-17 22:34:24 36.89 [facility] [place] [facility] Respiratory rate 2020-08-17 22:34:24 18 /min Univ ers[facility] [place] [facility] Oxygen saturation in 2020-08-17 22:34:24 98 /min University of Arterial blood by [facility] Pulse oximetry Branch Body height 2020-08-17 20:04:00 157.5 cm [facility] [place] [facility] Body weight 2020-08-17 20:04:00 58.06 kg [facility] [place] [facility] BMI 2020-08-17 20:04:00 23.41 kg/m2 [facility] [place] [facility] Systolic blood 2020-06-28 22:20:00 154 mm[Hg] Univer sity of pressure [place] [facility] Diastolic blood 2020-06-28 22:20:00 62 mm[Hg] Unive rsity of pressure [place] [facility] Heart rate 2020-06-28 22:20:00 70 /min [facility] [place] [facility] Body temperature 2020-06-28 22:20:00 36.5 [facility] [place] [facility] Respiratory rate 2020-06-28 22:20:00 18 /min Univ ers[facility] [place] [facility] Oxygen saturation in 2020-06-28 22:20:00 96 /min University of Arterial blood by [facility] Pulse oximetry Branch Body weight 2020-06-28 11:35:00 59.875 kg [facility] [place] [facility] BMI 2020-06-28 11:35:00 24.14 kg/m2 [facility] [place] [facility] Body height 2020-06-28 02:33:00 157.5 cm [facility] [place] [facility] Systolic blood 2019-12-22 22:20:00 162 mm[Hg] Univer sity of pressure [place] [facility] Diastolic blood 2019-12-22 22:20:00 60 mm[Hg] Unive rsity of pressure [place] [facility] Heart rate 2019-12-22 22:20:00 63 /min [facility] [place] [facility] Body temperature 2019-12-22 22:20:00 36.72 [facility] Respiratory rate 2019-12-22 22:20:00 20 /min [facility] Oxygen saturation in 2019-12-22 22:20:00 96 /min University Arterial blood by [facility] Pulse oximetry Branch Body weight 2019-12-22 09:45:00 66.707 kg [facility] Systolic blood 2021-12-17 19:53:38 137 mm[Hg] [facility] pressure Diastolic blood 2021-12-17 19:53:38 66 [facility]Hg[facility] Heart rate 2021-12-17 19:53:38 94 /min [facility] Body temperature 2021-12-17 19:53:38 37 [facility] Respiratory rate 2021-12-17 19:53:38 18 /min [facility] Oxygen saturation in 2021-12-17 19:53:38 98 /min [facility] Arterial blood by Pulse oximetry Body height 2021-12-17 19:51:00 157.5 cm [facility] Body weight 2021-12-17 19:51:00 49.442 kg [facility] BMI 2021-12-17 19:51:00 19.94 kg/m2 [facility] Systolic blood 2021-10-14 03:00:00 197 mm[Hg] Method [facility] pressure Diastolic blood 2021-10-14 03:00:00 86 mm[Hg] [facility] Heart rate 2021-10-14 03:00:00 63 /min [facility] Respiratory rate 2021-10-14 03:00:00 18 /min [facility] Oxygen saturation in 2021-10-14 03:00:00 96 /min [facility] Arterial blood by Pulse oximetry Body temperature 2021-10-13 21:33:00 37.11 [facility] Body height 2021-10-13 21:33:00 154.9 cm [facility] Body weight 2021-10-13 21:33:00 51.71 kg [facility] BMI 2021-10-13 21:33:00 21.54 kg/m2 [facility] Procedures Procedure Date / Time Performing Clinician Source Performed HC COMPLETE BLD COUNT 2021-12-17 20:27:00 [facility] W/AUTO DIFF COMPREHENSIVE METABOLIC 2021-12-17 20:27:00 [facility] PANEL LACTIC ACID LEVEL, SEPSIS 2021-12-17 20:27:00 [facility] - NOW AND REPEAT 2X EVERY 3 HOURS LIPASE LEVEL 2021-12-17 20:27:00 [facility] TROPONIN T 2021-12-17 20:27:00 [facility] ESTIMATED GFR 2021-12-17 20:27:[address] [facility] [address] ABDOMEN PELVIS WO 2021-12-17 20:25:32 [facility] CONTRAST EKG-12 LEAD 2021-12-07 02:06:33 [facility] TROPONIN I 2021-12-06 23:55:00 [facility] COMP. METABOLIC PANEL 2021-12-06 23:55:00 Lizbeth Kapoor [facility] ([id number]) [facility] CBC WITH DIFF 2021-12-06 23:55:00 [facility] N-TERMINAL PRO-BNP 2021-12-06 23:55:00 Lizbeth Kapoor [facility] XR CHEST 1 VW 2021-12-06 23:18:43 Lizbeth Kapoor [facility] URINALYSIS 2021-12-06 23:18:00 Lizbeth Kapoor [facility] CONSENT/REFUSAL FOR 2021-12-06 22:34:50 Doctor Unassigned, [facility] DIAGNOSIS AND TREATMENT [place] [facility] ED REFERRAL TO [facility] 2021-10-14 04:12:06 William Brooke [facility] BUDDHIST PHYSICIAN ORGANIZATION ECG ED PRELIMINARY 2021-10-14 03:32:00 William Brooke [facility] INTERPRETATION ED REFERRAL TO [facility] 2021-10-14 03:16:17 William Brooke [facility] BUDDHIST PHYSICIAN ORGANIZATION URINE CULTURE 2021-10-14 02:27:00 Raymond, [facility] URINALYSIS SCREEN AND 2021-10-14 02:27:00 [facility] WITH REFLEX TO CULTURE CT ABDOMEN PELVIS W 2021-10-14 00:50:40 [facility] CONTRAST HC COMPLETE BLD COUNT 2021-10-13 22:26:00 William Brooke [facility] W/AUTO DIFF COMPREHENSIVE METABOLIC 2021-10-13 22:26:00 William Brooke [facility] PANEL MAGNESIUM LEVEL 2021-10-13 22:26:00 [facility] ACID LEVEL, SEPSIS 2021-10-13 22:26:[address] [facility] - NOW AND REPEAT 2X EVERY 3 HOURS LIPASE LEVEL 2021-10-13 22:26:00 William Brooke [facility] ESTIMATED GFR 2021-10-13 22:26:00 Raymond [facility] ECG 12-LEAD 2021-10-13 22:02:57 William Brooke [facility] URINALYSIS 2020-08-17 23:20:00 Dave [facility] XR CHEST 1 VW 2020-08-17 [facility]:01[facility] PELVIS W 2020-08-17 22:57:29 Miriam Acosta [facility] CONTRAST [facility] Branch LIPASE 2020-08-17 21:55:00 Eduardo Lyn [facility] TROPONIN I 2020-08-17 21:55:00 Eduardo Lyn [facility] HEPATIC FUNCTION PANEL 2020-08-17 21:55:00 Eduardo Lyn [facility] ([id number]) (ALB,T.PRO,BILI Medical Branch T,BU/BC,ALT,AST,ALK PHOS) BASIC METABOLIC PANEL 2020-08-17 21:55:00 [facility] (NA, K, CL, CO2, GLUCOSE, Medica l Branch BUN, CREATININE, CA) CBC WITH DIFF 2020-08-17 21:55:00 Eduardo Lyn [facility] PROTHROMBIN TIME / INR 2020-08-17 21:55:00 Eduardo Lyn [facility] ACTIVATED PARTIAL 2020-08-17 21:55:00 Eduardo Lyn [facility] ASSIGNMENT OF BENEFITS 2020-08-17 19:57:46 Doctor Unassigned, [facility] [place] [facility] [place] CONSENT/REFUSAL FOR 2020-08-17 19:56:45 Doctor Unassigned, [facility] DIAGNOSIS AND TREATMENT [place] [facility] ECHO ROUTINE W/DOPPLER 2020-06-28 15:41:59 [facility] MAGNESIUM 2020-06-28 11:40:00 Shaikh [facility] BASIC METABOLIC PANEL 2020-06-28 11:40:00 [facility] ([facility], K, CL, CO2, GLUCOSE, Medica l Branch BUN, CREATININE, CA) POCT ACT LOW RANGE 2020-06-27 16:07:00 Kati Weeks [facility] POCT ACT LOW RANGE 2020-06-27 15:36:00 Kati Weeks [facility] HB ECG ROUTINE & RHYTHM 2020-06-27 13:32:25 Concepcion Perez [facility] MAGNESIUM 2020-06-27 11:53:00 [facility] BAS[facility] METABOLIC PANEL 2020-06-27 11:53:00 [facility] (NA, K, CL, CO2, GLUCOSE, Medica l Branch BUN, CREATININE, CA) TROPONIN I 2020-06-27 03:16:00 [facility] PART[facility] 2020-06-27 03:16:00 Mitch Spence [facility] TROPONIN I 2020-06-26 22:15:00 [facility] IRON PANEL 2020-06-26 22:15:00 Shaikh [facility] URINE DRUG (IMMUNOASSAY) 2020-06-26 21:39:00 [facility] SCREEN TROPONIN I 2020-06-26 19:17:00 [facility] HB ECG ROUTINE & RHYTHM 2020-06-26 14:13:23 Mitch Spence [facility] STRIP [facility] PHOSPHORUS 2020-06-26 12:43:00 [facility] MAGNESIUM 2020-06-26 12:43:00 [facility] FERRITIN SERUM 2020-06-26 12:43:00 [facility] TROPONIN I 2020-06-26 12:43:00 [facility] THYROID STIMULATING 2020-06-26 12:43:00 Concepcion Perez [facility] HORMONE [facility] BASIC METABOLIC PANEL 2020-06-26 12:43:00 Concepcion Perez [facility] (NA, K, CL, CO2, GLUCOSE, Medica l Branch BUN, CREATININE, CA) PROTHROMBIN TIME / INR 2020-06-26 12:43:00 Concepcion Perez [facility] ACTIVATED PARTIAL 2020-06-26 12:43:00 Concepcion Perez [facility] THRMPLAS [facility] N-TERMINAL PRO-BNP 2020-06-26 12:43:00 Concepcion Perez [facility] FREE T4 2020-06-26 11:20:00 [facility] LIPID PANEL ([id number])(TOTAL 2020-06-26 11:20:00 Concepcion Perez [facility] CHOLESTEROL, [facility] TRIGLYCERIDES, HDL) GLYCOSYLATED HEMOGLOBIN 2020-06-26 11:20:00 Concepcion Perez [facility] (A1C) [facility] HB ECG ROUTINE & RHYTHM 2020-06-26 11:00:38 Concepcion Perez [facility] XR CHEST 1 VW 2020-06-26 10:35:00 [facility] ABDOMEN PELVIS W 2020-06-26 04:45:33 Singer [facility] CONTRAST Medical Branch COVID-19 (ID NOW RAPID 2020-06-26 04:26:00 Singer [facility] TESTING) Medical Branch LIPASE 2020-06-26 03:45:00 Singer [facility] TROPONIN I 2020-06-26 03:45:00 Singer [facility] COMP. METABOLIC PANEL 2020-06-26 03:45:00 Singer [facility] ([id number]) Medical Branch CBC WITH DIFF 2020-06-26 03:45:00 Singer [facility] URINALYSIS 2020-06-26 03:45:00 Singer [facility] HB ECG ROUTINE & RHYTHM 2020-06-26 03:31:06 Singer [facility] STRIP Medical Branch CONSENT/REFUSAL FOR 2020-06-26 03:28:09 Doctor Unassdarryl, [facility] DIAGNOSIS AND TREATMENT [place] [facility] [place] HOSPITAL ADMISSION 2020-06-25 06:01:00 Doctor Cynthia, [facility] AUTHORIZATION FOR RELEASE 2020-01-06 05:01:00 Doctor Unatritsan, [facility] Medical [place] ECHO ROUTINE W/DOPPLER 2019-12-22 15:03:59 Olivia Tobias [facility] COLOR [facility] CAROTID DUPLEX BILATERAL 2019-12-22 14:35:53 Olivia Tobias [facility] BY VASCULAR LAB [facility] Branch TROPONIN I 2019-12-22 08:59:00 Olivia Tobias [facility] BASIC METABOLIC PANEL 2019-12-22 08:59:00 Jermain Javier [facility] (NA, K, CL, CO2, GLUCOSE, Medica l Branch BUN, CREATININE, CA) CBC WITH DIFF 2019-12-22 08:59:00 Jermain Javier [facility] FOLATE 2019-12-22 03:00:00 Olivia Tobias [facility] TROPONIN I 2019-12-22 03:00:00 Jatinder, Olivia [facility] IRON PANEL 2019-12-22 03:00:00 Jatinder [facility] COVID-19 (ID NOW RAPID 2019-12-21 22:22:[address] [facility] TEST[facility]) Medical Branch CRITICAL CARE 2019-12-21 22:20:22 Lokesh Olivier [facility] URINALYSIS 2019-12-21 21:59:00 Lokesh Olivier [facility] CT HEAD WO CONTRAST 2019-12-21 21:35:00 Lokesh Olivier [facility] FERRITIN SERUM 2019-12-21 20:16:00 Jatinder [facility] TROPONIN I 2019-12-21 20:16:00 Lokesh Olivier [facility] THYROID STIMULATING 2019-12-21 20:16:[address] [facility] HORMONE [facility] HEPATIC FUNCTION PANEL 2019-12-21 20:16:00 Lokesh Olivier [facility] ([id number]) (ALB,T.PRO,BILI Medical Branch T,BU/BC,ALT,AST,ALK PHOS) BASIC METABOLIC PANEL 2019-12-21 20:16:00 Lokesh Olivier [facility] (NA, K, CL, CO2, GLUCOSE, Medica l Branch BUN, CREATININE, CA) CBC WITH DIFF 2019-12-21 20:16:00 Lokesh Olivier [facility] GLYCOSYLATED HEMOGLOBIN 2019-12-21 20:16:00 Jatinder [facility] (A1C) [facility] PROTHROMBIN TIME / INR 2019-12-21 20:16:00 Lokesh Olivier [facility] ACTIVATED PARTIAL 2019-12-21 20:16:00 [facility] MARI [facility] N-TERMINAL PRO-BNP 2019-12-21 20:16:00 Lokesh Olivier [facility] EKG-12 LEAD 2019-12-21 20:04:50 Lokesh Olivier [facility] NOTICE OF PRIVACY 2019-12-21 19:51:58 Doctor Unassigned, [facility] PRACTICES [place] [facility] Plan of Care Planned Activity Planned Date Details Comments Source Future Scheduled 2022-01-05 Hepatitis C screening [facility] Test 16:20:21 (procedure) [code = [id number]] Future Scheduled 2022-01-05 SHINGLES VACCINES (1 Met [facility] Test 16:20:21 of 2) [code = SHINGLES VACCINES (1 of 2)] Future Scheduled 2022-01-05 HEPATITIS B VACCINES Met [facility] Test 16:20:21 (2 of 3 - Hep B Twinrix 3-dose series) [code = HEPATITIS B VACCINES (2 of 3 - Hep B Twinrix 3-dose series)] Future Scheduled 2022-01-05 65+ [facility]21 VACCINE (2 - PCV) [code = 65+ PNEUMOCOCCAL VACCINE (2 - PCV)] Future Scheduled 2022-01-05 COVID-19 VACCINE (3 - [facility] Test 16:20:21 Booster for Pfizer series) [code = COVID-19 VACCINE (3 - Booster for Pfizer series)] Future Scheduled 2022-01-05 INFLUENZA VACCINE Method [facility] Test 16:20:21 [code = INFLUENZA VACCINE] Future Scheduled 2022-01-05 HEPATITIS B VACCINES Met [facility] Test 16:20:13 (1 of 3 - 3-dose series) [code = HEPATITIS B VACCINES (1 of 3 - 3-dose series)] Future Scheduled 2022-01-05 COVID-19 VACCINE (#1) [facility] Test 16:20:13 [code = COVID-19 VACCINE (#1)] Future Scheduled 2022-01-05 Hepatitis C screening [facility] Test 16:20:13 (procedure) [code = [id number]] Future Scheduled 2022-01-05 SHINGLES VACCINES (1 Met [facility] Test 16:20:13 of 2) [code = SHINGLES VACCINES (1 of 2)] Future Scheduled 2022-01-05 65+ [facility] 16:20:13 VACCINE (1 - PCV) [code = 65+ PNEUMOCOCCAL VACCINE (1 - PCV)] Future Scheduled 2022-01-05 INFLUENZA VACCINE Method [facility] Test 16:20:13 [code = INFLUENZA VACCINE] Future Scheduled 2021-12-28 INFLUENZA VACCINE (#1) [facility] Test 00:00:00 [code = INFLUENZA Medical Ce nter VACCINE (#1)] Future Scheduled 2021-04-[address] [facility]00 (12+) [code = Medical Center DEPRESSION SCREENING (12+)] Future Scheduled 2021-04-29 [address] SCREENING [facility] 00:[facility]:00 [code = FALLS RISK Medical C enter SCREENING] Future Scheduled 2021-04-29 Medicare IPPE (WELCOME [facility]00 TO MEDICARE) [code = Medical Center Medicare IPPE (WELCOME TO MEDICARE)] Future Scheduled 2009 PNEUMOCOCCAL 65+ YRS [facility] 00:00:00 (1 - PCV) [code = Medical Ce nter PNEUMOCOCCAL 65+ YRS (1 - PCV)] Future Scheduled 1994 SHINGLES VACCINES ([address] [facility] 00:00:00 of 2) [code = SHINGLES Medic al Center VACCINES (1 of 2)] Future Scheduled 1963 DTAP/TDAP/TD VACCINES [facility] 00:00:00 (1 - Tdap) [code = Medical C enter DTAP/TDAP/TD VACCINES (1 - Tdap)] Future Scheduled 1962 HEPATITIS C SCREENING [facility]00 [code = HEPATITIS C Medical Center SCREENING] Future Scheduled 1944 COVID-19 VACCINE (#1) [facility] 00:00:00 [code = COVID-[address] VACCINE (#1)] Future Scheduled 1944 DXA SCAN [code = DXA [facility] 00:00:00 SCAN] Medical Center Encounters Start End Encounter Admission Attending Care Care Encounter Source Date/Time Date/Time Type Type Clinicians Facility Department ID 2021-05-24 Outpatient [facility] [id number] Common 11:59:49 [id number] [facility] 2021-12-17 2021-12-17 Emergency [facility], 2.840.1 [id number] Methodi 14:54:00 16:25:00 Catracho Hutson [address] 3.430.2.7 Hospit a .3.536062 l .8 2021-12-17 2021-12-17 Emergency RIVSOSA, [facility] [id number] Beltrami 00:00:00 00:00:00 CATRACHO [address] 2021-12-06 2021-12-06 Emergency [facility] [id number] Univers 17:37:00 21:44:00 [facility] 2021-12-06 2021-12-06 Emergency Wendy, TRAUMA 1.2.840.114 [id number] Univers 17:37:00 21:44:00 [facility] 350.1.13.10 it [place] [phone] [address] 2021-11-10 2021-11-10 Outpatient DMG [facility] [id number] Devoted 03:49:00 03:49:00 0715 Medica l Group 2021-11-01 2021-11-[address] [facility] [id number] [facility] 00:00:00 00:00:00 [facility] 2021-10-13 2021-10-13 Emergency Raymond, 1.2.840.1 [id number] Methodi 16:41:00 22:32:[address]rina [address]89.1.[address] 3.430.2.7 Hospit a .3.732446 l .8 2021-10-13 2021-10-13 Travel 1.2.840.1 1.2.089.291 [id number] Methodi 00:00:00 00:00:[address] 3.430.2.7 0.2.7.3.698 Ho spita .3.345790 084.8 l .8 2021-10-13 2021-10-13 Emergency RAYMOND, [facility] [id number] Bel[place] 00:00:00 00:00:00 WILL[address] 2020-10-24 2020-10-24 Outpatient Kati Gaensh VFP [id number] [facility] 04:50:00 04:50:00 _A_ 10904 Family Practic e 2020-08-17 2020-08-17 [facility] 1.2.158.263 [id number] Univers 15:08:00 19:46:00 [facility] 350.1.13.10 it y [place] [facility] [phone] [address] ([facility]) 2020-08-17 2020-08-17 Emergency X [facility] ERT [id number] Univers 14:56:00 14:56:00 ity of [facility] 2020-06-30 2020-06-30 Nurse LIZBETH Aly 1.2.840.114 [id number] Univers 00:00:00 00:00:00 Triage Iva Pham ALESSIA 350.1.13.[address] [facility] 4.2.7.2.686 Jayme as [id number] [facility] [address] 2020-06-29 2020-06-29 Transition Wesley Valencia 1.2.840.114 [id number] Univers 00:00:00 00:00:00 of Care Jadyn Benitezy 350.1.13.10 it y of [place] [id number] [facility] [address] 2020-06-25 2020-06-28 Hospital Dudley Prado 1.2.840.1 14 [id number] Univers 21:30:00 16:59:00 Encounter yazanKati Butler 350.1.13 .10 ity of [facility] 4.2.7.2.686 [place] [phone] [facility] [address]90 [address] 2020-06-25 2020-06-25 Emergency X [facility] ERT [id number] Univers 21:25:00 21:25:00 ity of [facility] 2020-01-06 2020-01-06 Orders Doctor LIZBETH 1.2.840.114 [id number] Univers 00:00:00 00:00:00 Only Unassigned, ALESSIA 350.1.13.10 ity of [facility] 4.2.7.2.686 Jayme as [id number] [facility] 009 Branch 2019-12-29 2019-12-29 Out[facility] [id number] Common 14:40:00 14:40:00 [facility] [address] [facility] 2019-12-23 2019-12-23 Transition Wesley Valencia 1.2.840.114 [id number] Univers 00:00:00 00:00:00 of Christy De La Torre 350.1.13.10 it y of [place] [phone] [facility] 403 [address] 2019-12-21 2019-12-22 Emergency Lokesh Olivier [facility] 1.2.840. 114 [id number] Univers 15:01:00 18:54:00 MarkvicenteJermain Reid 350.1.13.10 ity of [place] [phone] [facility] 081 Branch 2019-12-21 2019-12-21 Emergency X [place] ERT [id number] Univers 14:51:00 14:51:00 ity [facility] 2019-12-11 2019-12-11 Out[facility] [id number] Common 16:40:00 16:40:00 [facility] [address] [facility] 2019-12-07 2019-12-07 [facility] [id number] Common 16:21:00 16:21:[address] [facility] 2019-07-09 2019-07-09 Outpatient Bernadette-Mbayo VFP VFP [id number] [id number] [facility] 07:02:00 07:02:00 _A_AH 92776 Family Practic e 2019-07-09 2019-07-09 Outpatient Bernadette-Mbayo VFP VFP [id number] [id number] [facility] 07:02:00 07:02:00 _A_AH 08557 Family Practic e 2019-06-17 2019-06-17 Outpatient Bernadette-Mbayo VFP VFP [id number] [id number] [facility] 07:18:00 07:18:00 _A_AH 32519 Family Practic e 2019-03-11 2019-03-11 Outpatient [facility] [id number] Common 14:40:00 14:40:[address] [facility] Spir it [facility] 2018-09-09 2018-09-09 Outpatient Marley Bedoya [id number] Common 11:00:00 11:00:00 [facility] [address] [facility] 2018-07-01 2018-07-01 Outpatient Marley Bedoya 24 [id number] Common 23:15:00 23:15:[address] [facility] Spir it [facility] 2018-06-26 2018-06-26 Outpatient Marley Roacht 24 [id number] Common 13:15:00 13:15:[address] [facility] Spir [facility] 2018-06-17 2018-06-17 Outpatient Marley Bedoya [id number] Common 19:32:00 19:32:00 [facility] 2018-06-10 2018-06-10 Outpatient Marley Bedoya 24 [id number] Common 13:45:00 13:45:00 [facility] Results Test Description Test Time Test Comments Results Result Comments Source TROPONIN I 2021-12-07 00:49:34 Test Item Value Reference Range Interpretation Comme nts TROPONIN I (test code = 0.002 ng/mL See_Comment [Au tomated message] The [id number]) system which ge nerated this result tra nsmitted reference range : <=0.034. The reference r amina was not used to int erpret this result as normal/abnormal . SIMI (test code = SIMI) Reference (Normal) Range (defined by the 99th percentile reference limit): <= 0.034 ng/mL Note: Cardiac troponin begins to rise 3-4 hours after the onset of ischemia. Repeat in 4-6 hours if the sample was drawn within 3-4 hours of the onset of the symptom and found normal. Diagnosis of myocardial injury is made with acute changes in cTn concentrations with at least one serial sample above the 99th percentile upper reference limit (URL), taken together with the patient's clinical presentation. Biotin has been reported to cause a negative bias, interpret results relative to patient's use of biotin. Lab Interpretation Normal (test code = 47991-9) [facility] [id number] 00:49:34 Test Item Value Reference Range Interpretation Comments NT-proBNP (test code 383 pg/mL See_Comment [Autom ated = 6984382348) message] The system which generated this result transmitted reference range : <=450. The reference range was not used to interpret this result as normal/abnormal . SIMI (test code = SIMI) Biotin has been reported to cause a negative bias, interpret results relative to patient's use of biotin. Lab Interpretation Normal (test code = 29158-3) [facility]OLIC PAN[facility] (63907)2021-12-07 00:35:51 Test Item Value Reference Range Interpretation Comments NA (test code = 127 mmol/L 135-145 L 8165578879) K (test code = 4.3 mmol/L 3.5-5 0114933634) CL (test code = 100 mmol/L 98-108 0247068671) CO2 TOTAL (test code = 21 mmol/L 23-31 L 8225890512) AGAP (test code = 2-16 0415136710) BUN (test code = 11 mg/dL 7-23 4728328731) GLUCOSE (test code = 113 mg/dL 70-110 H 4678363492) CREATININE (test code = 0.54 mg/dL 0.5-1.04 1136242122) TOTAL BILI (test code = 0.4 mg/dL 0.1-1.3 6260562033) CALCIUM (test code = 9.0 mg/dL 8.6-10.6 8480689096) T PROTEIN (test code = 6.9 g/dL 6.3-8.2 7134316888) ALBUMIN (test code = 4.4 g/dL 3.5-5 8911541523) ALK PHOS (test code = 69 U/L 34-122 7050660901) ALTv (test code = 16 U/L 5-35 1742-6) AST(SGOT) (test code = 21 U/L 13-40 3311303564) eGFR (test code = mL/min/1.73m2 9243892793) SIMI (test code = SIMI) Association of Glomerular Filtration Rate (GFR) and Staging of Kidney Disease* + --+ --+ ------+| GFR (mL/min/1.73 m2) ?| With Kidney Damage ?| ?Without Kidney Damage+ --------+ --------+ +| ?>90 ?| ?Stage one ?| ? Normal ?+ ---+ ---+ -------+| ?60-89 ?| ?Stage two ?| ? Decreased GFR ? + --+ --+ ------+| ?30-59 ?| ?Stage three ?| ? Stage three ? + --+ --+ ------+| ?15-29 ?| ?Stage four ? | ? Stage four ?+ ---+ ---+ -------+| ?<15 (or dialysis) ? ?| ?Stage five ? | ? Stage five ?+ ---+ ---+ -------+ *Each stage assumes the associated GFR level has been in effect for at least three months. ?Stages 1 to 5, with or without kidney disease, indicate chronic kidney disease. Notes: Determination of stages one and two (with eGFR >59mL/min/1.73 m2) requires estimation of kidney damage for at least three months as defined by structural or functional abnormalities of the kidney, manifested by either:Pathological abnormalities or Markers of kidney damage (including abnormalities in the composition of the blood or urine or abnormalities in imaging tests). Lab Interpretation Abnormal (test code = 83572-4) [facility] WITH [id number] 00:16:33 Test Item Value Reference Range Interpretation Comments WBC (test code = See_Comment [Automated 1412-2) message] The sy stem which generated this result transmitted reference range : 4.30 - 11.10 10*3/?L. The reference range was not used to interpret this result as normal/abnormal . RBC (test code = See_Comment L [Automated 629-8) message] The sy stem which generated this result transmitted reference range : 3.93 - 5.25 10*6/?L. The reference range was not used to interpret this result as normal/abnormal . HGB (test code = 12.2 g/dL 11.6-15 718-7) HCT (test code = 34.4 % 35.7-45.2 L 4544-3) MCV (test code = 89.4 fL 80.6-95.5 787-2) MCH (test code = 31.7 pg 25.9-32.8 785-6) MCHC (test code = 35.5 g/dL 31.6-35.1 H 786-4) RDW-SD (test code = 43.5 fL 39-49.9 37004-9) RDW-CV (test code = 13.3 % 12-15.5 788-0) PLT (test code = See_Comment [Automated 777-3) message] The sy stem which generated this result transmitted reference range : 166 - 358 10*3/ ?L. The reference r amina was not used to interpret this result as normal/abnormal . MPV (test code = 10.2 fL 9.5-12.9 04078-9) NRBC/100 WBC (test See_Comment [Automat ed code = 8158086712) message] The system which generated this result transmitted reference range : 0.0 - 10.0 /100 WBCs. The refer ence range was not u sed to interpret th is result as normal/abnormal . NRBC x10^3 (test code See_Comment [Auto mated = 4542597606) message] The s ystem which generated this result transmitted reference range : 10*3/?L. The reference range was not used to interpret this result as normal/abnormal . GRAN MAT (NEUT) % 62.1 % (test code = 770-8) IMM GRAN % (test code 0.30 % = 0206697428) LYMPH % (test code = 27.8 % 736-9) MONO % (test code = 7.8 % 5905-5) EOS % (test code = 0.8 % 713-8) BASO % (test code = 1.2 % 706-2) GRAN MAT x10^3(ANC) 3.68 10*3/uL 1.88-7.09 (test code = 8661025168) IMM GRAN x10^3 (test 0-0.06 code = 1247031303) LYMPH x10^3 (test code 1.65 10*3/uL 1.32-3.29 = 731-0) MONO x10^3 (test code 0.46 10*3/uL 0.33-0.92 = 742-7) EOS x10^3 (test code = 0.05 10*3/uL 0.03-0.39 711-2) BASO x10^3 (test code 0.07 10*3/uL 0.01-0.07 = 704-7) Lab Interpretation Abnormal (test code = 98245-0) [facility] 12 [id number] 01:11:18 Test Item Value Reference Range Interpretation Comments Ventricular rate (test code = 253) Atrial rate (test code = 255) GA interval (test code = 266) QRSD interval (test code = 260) QT interval (test code = 264) QTC interval (test code = 265) P axis 1 (test code = 267) QRS axis 1 (test code = 268) T wave axis (test code = 270) EKG impression (test Normal sinus code = 273) rhythm-Normal ECG-No previous ECGs available-Electronica lly Signed By Agustina Riojas MD ([id number]) on 10/14/2021 8:11:15 PM [facility] [id number] 02:46:00 Test Item Value Reference Range Interpretation Comments Urine culture (test SEE COMMENT Bacteriu david screen code = 6452096) negative. [facility] [id number] 23:40:30 Test Item Value Reference Range Interpretation Comments APPEARANCE (test code = Hazy Clear A 2576930028) COLOR (test code = Yellow Yellow 9413460106) PH (test code = 4.8-8.0 2011776968) SP GRAVITY (test code = 1.003-1.030 5278502409) GLU U QUAL (test code = Normal Normal 3938584972) BLOOD (test code = 1+ Negative A 6778475300) KETONES (test code = Negative Negative 2731882628) PROTEIN (test code = Negative Negative 2887-8) UROBILIN (test code = Normal Normal 6348038637) BILIRUBIN (test code = Negative Negative 1088943690) NITRITE (test code = Negative Negative 9300978828) LEUK JAKY (test code = 500/uL Negative A 7581764614) RBC/HPF (test code = See_Comment [Autom ated message] 7221510738) The system ubigrate generated this result transmitted ref erence range: 0 - 3 HP F. The reference range was not used to int erpret this result as normal/abnormal . WBC/HPF (test code = See_Comment H [Autom ated message] 2432802317) The system ubigrate generated this result transmitted ref erence range: 0 - 5 HP F. The reference range was not used to int erpret this result as normal/abnormal . BACTERIA (test code = Few Negative A 7390613655) SQ EPITH (test code = <1 See_Comment [Auto mated message] 2793781651) The system ubigrate generated this result transmitted ref erence range: <=2 HPF. The reference range was not used to int erpret this result as normal/abnormal . Lab Interpretation (test Abnormal code = 60470-2) [facility] HospitalTroponin [id number] 22:34:20 Test Item Value Reference Range Interpretation Comments TROPONIN I (test 0.001 ng/mL See_Comment [Automated code = 9122874672) message] The system which generated this result transmitted reference range : <=0.034. The reference range was not used to interpret this result as normal/abnormal . SIMI (test code = Equal or Less than SIMI) 0.034 ng/ml---Normal ?Note: Cardiac troponin begins to rise 3-4 hours after the onset of ischemia. Repeat in 4-6 hours if the sample was drawn within 3-4 hours of the onset of the symptom and found normal. Between 0.035 and 0.120 ng/mL--- Borderline. Questionable myocardial injury or necrosis ? ?Note: Serial measurement may be necessary to confirm or exclude the diagnosis of myocardial injury or necrosis; Clinical correlation (symptoms, EKGs, imaging studies, and others) required; Repeat in 4-6 hours if clinically indicated. ? Equal or Higher than 0.121 ng/mL---Abnormal. Myocardial Injury or Necrosis Likely ? Biotin has been reported to cause a negative bias, interpret results relative to patient's use of biotin. ? Lab Interpretation Normal (test code = 98734-4) [facility] HospitalaPTT2021-04-21 22:23:58 Test Item Value Reference Range Interpretation Comments APTT Patient (test See_Comment [Automat ed code = 3173-2) message] The system which generated this result transmitted reference range : 26 - 36 Seconds . The reference range was not used to interpr et this result as normal/abnormal . SIMI (test code = SIMI) The [facility] patient population mean normal value for aPTT is 30 seconds. Lab Interpretation Normal (test code = 38190-2) [facility] HospitalProthrombin Time (PT) / [id number] 22:23:58 Test Item Value Reference Range Interpretation Comments PROTIME PATIENT (test See_Comment [Auto mated message] code = 5964-2) The system wh ich generated this result transmitted ref erence range: 10.1 - 1 2.6 Seconds. The re ference range was not u sed to interpret this result as normal/abnor mal. INR (test code = 6301-6) Nor mal INR <1.1; Warfarin Therap eutic range 2.0 to 3. 0 or 2.5 to 3.5, dep ending upon the indica tions. Lab Interpretation (test Normal code = 57570-5) [facility] (NA, K, CL, CO2, GLUCOSE, BUN, CREATININE, CA)2020-08-17 22:22:56 Test Item Value Reference Range Interpretation Comments NA (test code = 138 mmol/L 135-145 4747942614) K (test code = 4.0 mmol/L 3.5-5.0 0660961323) CL (test code = 104 mmol/L 98-108 4826017820) CO2 TOTAL (test code 26 mmol/L 23-31 = 8196057507) AGAP (test code = 2-16 9886626229) BUN (test code = 12 mg/dL 7-23 8871000677) GLUCOSE (test code = 99 mg/dL 70-110 9325174166) CREATININE (test code 0.69 mg/dL 0.50-1.04 = 1175591524) CALCIUM (test code = 9.7 mg/dL 8.6-10.6 6926108266) eGFR (test code = mL/min/1.73m2 6080670753) SIMI (test code = SIMI) Association of Glomerular Filtration Rate (GFR) and Staging of Kidney Disease* + + +- +| GFR (mL/min/1.73 m2) ?| With Kidney Damage ?| ?Without Kidney Damage+ ------+ ----+ ------+| ?>90 ?| ?Stage one ?| ? Normal ?+ -+ + -+| ?60-89 ?| ?Stage two ?| ? Decreased GFR ? + + +- +| ?30-59 ?| ?Stage three ?| ? Stage three ? + + +- +| ?15-29 ?| ?Stage four ? | ? Stage four ?+ -+ + -+| ?<15 (or dialysis) ? ?| ?Stage five ? | ? Stage five ?+ -+ + -+ *Each stage assumes the associated GFR level has been in effect for at least three months. ?Stages 1 to 5, with or without kidney disease, indicate chronic kidney disease. Notes: Determination of stages one and two (with eGFR >59mL/min/1.73 m2) requires estimation of kidney damage for at least three months as defined by structural or functional abnormalities of the kidney, manifested by either:Pathological abnormalities or Markers of kidney damage (including abnormalities in the composition of the blood or urine or abnormalities in imaging tests). [facility] HospitalHep[facility] Function Panel (ALB, T.PRO, BILI T, BU/BC, ALT, AST, ALK PHOS)2020-08-17 22:22:56 Test Item Value Reference Range Interpretation Comments TOTAL BILI (test code = 7442571728) 0.2 mg/dL 0.1-1.1 BILI UNCON (test code = 4998882637) 0.2 mg/dL 0.1-1.1 BILI CONJ (test code = 3654594112) 0.0 mg/dL 0.0-0.3 T PROTEIN (test code = 5480847288) 7.2 g/dL 6.3-8.2 ALBUMIN (test code = 5811013216) 4.4 g/dL 3.5-5.0 ALK PHOS (test code = 9056744217) 66 U/L 34-122 ALTv (test code = 1742-6) 17 U/L 5-35 AST(SGOT) (test code = 1431306547) 22 U/L 13-40 Lab Interpretation (test code = Normal 32518-7) [facility] HospitalLipase [id number] 22:22:56 Test Item Value Reference Range Interpretation Comments LIPASE (test code = 1982717680) 323 U/L 0-220 H Lab Interpretation (test code = Abnormal 50605-4) [facility] HospitalCBC with [id number] 22:10:57 Test Item Value Reference Range Interpretation Comments WBC (test code = See_Comment [Automated 6690-2) message] The sy stem which generated this result transmitted reference range : 4.30 - 11.10 10*3/?L. The reference range was not used to interpret this result as normal/abnormal . RBC (test code = See_Comment L [Automated 789-8) message] The sy stem which generated this result transmitted reference range : 3.93 - 5.25 10*6/?L. The reference range was not used to interpret this result as normal/abnormal . HGB (test code = 11.6 g/dL 11.6-15.0 718-7) HCT (test code = 36.1 % 35.7-45.2 4544-3) MCV (test code = 94.3 fL 80.6-95.5 787-2) MCH (test code = 30.3 pg 25.9-32.8 785-6) MCHC (test code = 32.1 g/dL 31.6-35.1 786-4) RDW-SD (test code = 46.0 fL 39.0-49.9 02331-5) RDW-CV (test code = 13.3 % 12.0-15.5 788-0) PLT (test code = See_Comment [Automated 777-3) message] The sy stem which generated this result transmitted reference range : 166 - 358 10*3/ ?L. The reference r amina was not used to interpret this result as normal/abnormal . MPV (test code = 10.9 fL 9.5-12.9 29643-7) NRBC/100 WBC (test See_Comment [Automat ed code = 1254683075) message] The system which generated this result transmitted reference range : 0.0 - 10.0 /100 WBCs. The refer ence range was not u sed to interpret th is result as normal/abnormal . NRBC x10^3 (test code <0.01 See_Comment [Auto mated = 0812213900) message] The s ystem which generated this result transmitted reference range : 10*3/?L. The reference range was not used to interpret this result as normal/abnormal . GRAN MAT (NEUT) % 59.3 % (test code = 770-8) IMM GRAN % (test code 0.10 % = 4955036812) LYMPH % (test code = 29.1 % 736-9) MONO % (test code = 7.1 % 5905-5) EOS % (test code = 3.2 % 713-8) BASO % (test code = 1.2 % 706-2) GRAN MAT x10^3(ANC) 4.61 10*3/uL 1.88-7.09 (test code = 7662170115) IMM GRAN x10^3 (test <0.03 0.00-0.06 code = 2359926626) LYMPH x10^3 (test code 2.26 10*3/uL 1.32-3.29 = 731-0) MONO x10^3 (test code 0.55 10*3/uL 0.33-0.92 = 742-7) EOS x10^3 (test code = 0.25 10*3/uL 0.03-0.39 711-2) BASO x10^3 (test code 0.09 10*3/uL 0.01-0.07 H = 704-7) Lab Interpretation Abnormal (test code = 81367-7) [facility] (NA, K, CL, CO2, GLUCOSE, BUN, CREATININE, CA)2020-06-28 12:20:00 Test Item Value Reference Range Interpretation Comments NA (test code = 138 mmol/L 135-145 8949637074) K (test code = 3.4 mmol/L 3.5-5 L 1198755314) CL (test code = 111 mmol/L 98-108 H 9755016277) CO2 TOTAL (test code = 21 mmol/L 23-31 L 1424449659) AGAP (test code = 2-16 4759615686) BUN (test code = 14 mg/dL 7-23 3897674136) GLUCOSE (test code = 96 mg/dL 70-110 8627022937) CREATININE (test code = 0.54 mg/dL 0.5-1.04 0171842766) CALCIUM (test code = 7.6 mg/dL 8.6-10.6 L 9780312507) eGFR Calculation mL/min/1.73m2 (Non-) (test code = 2529680744) eGFR Calculation mL/min/1.73m2 () (test code = 7088927869) SIMI (test code = SIMI) Association of Glomerular Filtration Rate (GFR) and Staging of Kidney Disease* + --+ --+ ------+| GFR (mL/min/1.73 m2) ?| With Kidney Damage ?| ?Without Kidney Damage+ --------+ --------+ +| ?>90 ?| ?Stage one ?| ? Normal ?+ ---+ ---+ -------+| ?60-89 ?| ?Stage two ?| ? Decreased GFR ? + --+ --+ ------+| ?30-59 ?| ?Stage three ?| ? Stage three ? + --+ --+ ------+| ?15-29 ?| ?Stage four ? | ? Stage four ?+ ---+ ---+ -------+| ?<15 (or dialysis) ? ?| ?Stage five ? | ? Stage five ?+ ---+ ---+ -------+ *Each stage assumes the associated GFR level has been in effect for at least three months. ?Stages 1 to 5, with or without kidney disease, indicate chronic kidney disease. Notes: Determination of stages one and two (with eGFR >59mL/min/1.73 m2) requires estimation of kidney damage for at least three months as defined by structural or functional abnormalities of the kidney, manifested by either:Pathological abnormalities or Markers of kidney damage (including abnormalities in the composition of the blood or urine or abnormalities in imaging tests). Lab Interpretation Abnormal (test code = 60045-9) [facility] HospitalMAGNESIUM2021-03-02 12:20:00 Test Item Value Reference Range Interpretation Comments MAGNESIUM (test code = [id number]) 1.9 mg/dL 1.7-2.4 Lab Interpretation (test code = Normal 58870-9) [facility] ACT LOW [id number] 16:18:00 Test Item Value Reference Range Interpretation Comments ACTLR (test code = See_Comment H [Automat ed message] [id number]) The system ubigrate generated this result transmitted ref erence range: 89 - 169 Seconds. The reference range was not used to int erpret this result as normal/abnormal . Lab Interpretation (test Abnormal code = 91907-1) [facility] ACT LOW [id number] 15:47:00 Test Item Value Reference Range Interpretation Comments ACTLR (test code = See_Comment H [Automat ed message] [id number]) The system ubigrate generated this result transmitted ref erence range: 89 - 169 Seconds. The reference range was not used to int erpret this result as normal/abnormal . Lab Interpretation (test Abnormal code = 45652-2) [facility] [id number] 15:36:23EXAM: XR CHEST 1 VW HISTORY: chest pain COMPARISON: None. FINDINGS: The heart is upper limit of normal in size or slightly enlarged, probablythe latter. The aorta is partly calcified. The lungs are satisfactorilyexpanded and clear. ? [facility], Radiant Results Inft User - 06/27/2020 9:37 AM CSTEXAM: XR CHEST 1 VWHISTORY: chest pain COMPARISON: None.FINDINGS:The heart is upper limit of normal in size or slightly enlarged, probablythe latter. The aorta is partly calcified. The lungs are satisfactorilyexpanded and clear.[facility]OL[facility] PANEL (NA, K, CL, CO2, GLUCOSE, BUN, CREATININE, CA)2020-06-27 12:40:00 Test Item Value Reference Range Interpretation Comments NA (test code = 138 mmol/L 135-145 4251995897) K (test code = 4.4 mmol/L 3.5-5 Slight 1148012285) hemolysis CL (test code = 108 mmol/L 98-108 0975441095) CO2 TOTAL (test code 27 mmol/L 23-31 = 4226124677) AGAP (test code = 2-16 4156571082) BUN (test code = 19 mg/dL 7-23 Slight 4309283862) hemolysis GLUCOSE (test code = 99 mg/dL 70-110 8241750249) CREATININE (test code 0.58 mg/dL 0.5-1.04 = 1960490434) CALCIUM (test code = 8.2 mg/dL 8.6-10.6 L 0853911953) eGFR Calculation mL/min/1.73m2 (Non-) (test code = 9061831763) eGFR Calculation mL/min/1.73m2 () (test code = 3667451688) SIMI (test code = SIMI) Association of Glomerular Filtration Rate (GFR) and Staging of Kidney Disease* + -----+ --------+ +| GFR (mL/min/1.73 m2) ?| With Kidney Damage ?| ?Without Kidney Damage+ +------- +---- --+| ?>90 ?| ?Stage one ?| ? Normal ?+ ------+ ---------+--------- +| ?60-89 ?| ?Stage two ?| ? Decreased GFR ? + -----+ --------+ +| ?30-59 ?| ?Stage three ?| ? Stage three ? + -----+ --------+ +| ?15-29 ?| ?Stage four ? | ? Stage four ?+ ------+ ---------+--------- +| ?<15 (or dialysis) ? ?| ?Stage five ? | ? Stage five ?+ ------+ ---------+--------- + *Each stage assumes the associated GFR level has been in effect for at least three months. ?Stages 1 to 5, with or without kidney disease, indicate chronic kidney disease. Notes: Determination of stages one and two (with eGFR >59mL/min/1.73 m2) requires estimation of kidney damage for at least three months as defined by structural or functional abnormalities of the kidney, manifested by either:Pathological abnormalities or Markers of kidney damage (including abnormalities in the composition of the blood or urine or abnormalities in imaging tests). Lab Interpretation Abnormal (test code = 30620-5) [facility]UM2021-[facility] 12:40:00 Test Item Value Reference Range Interpretation Comments MAGNESIUM (test code = 4898555260) 2.2 mg/dL 1.7-2.4 Lab Interpretation (test code = Normal 24297-4) [facility] HospitalTROPONIN [id number] 04:12:00 Test Item Value Reference Range Interpretation Comments TROPONIN I (test 0.300 ng/mL See_Comment H [Automated code = 0815647893) message] The system which generated this result transmitted reference range : <=0.034. The reference range was not used to interpret this result as normal/abnormal . SIMI (test code = Equal or Less than SIMI) 0.034 ng/ml---Normal ?Note: Cardiac troponin begins to rise 3-4 hours after the onset of ischemia. Repeat in 4-6 hours if the sample was drawn within 3-4 hours of the onset of the symptom and found normal. Between 0.035 and 0.120 ng/mL--- Borderline. Questionable myocardial injury or necrosis ? ?Note: Serial measurement may be necessary to confirm or exclude the diagnosis of myocardial injury or necrosis; Clinical correlation (symptoms, EKGs, imaging studies, and others) required; Repeat in 4-6 hours if clinically indicated. ? Equal or Higher than 0.121 ng/mL---Abnormal. Myocardial Injury or Necrosis Likely ? Biotin has been reported to cause a negative bias, interpret results relative to patient's use of biotin. ? Lab Interpretation Abnormal (test code = 11118-5) [facility] THRMPLAS [id number] 03:55:00 Test Item Value Reference Range Interpretation Comments APTT Patient (test code See_Comment H [Au tomated message] = 3173-2) The system ubigrate generated this result transmitted ref erence range: 26 - 36 Seconds. The reference range was not used to int erpret this result as normal/abnormal . Lab Interpretation (test Abnormal code = 58552-1) [facility] HospitalIRON [id number] 23:23:00 Test Item Value Reference Range Interpretation Comments IRON (test code = 7901821677) 93 ug/dL 50-160 TIBC (test code = 0537633548) 368 ug/dL 250-410 % FE SAT (test code = 9438665809) 25 % 20-50 Lab Interpretation (test code = Normal 74819-6) [facility] HospitalTROPONIN [id number] 23:19:00 Test Item Value Reference Range Interpretation Comments TROPONIN I (test 0.346 ng/mL See_Comment H [Automated code = 4335109715) message] The system which generated this result transmitted reference range : <=0.034. The reference range was not used to interpret this result as normal/abnormal . SIMI (test code = Equal or Less than SIMI) 0.034 ng/ml---Normal ?Note: Cardiac troponin begins to rise 3-4 hours after the onset of ischemia. Repeat in 4-6 hours if the sample was drawn within 3-4 hours of the onset of the symptom and found normal. Between 0.035 and 0.120 ng/mL--- Borderline. Questionable myocardial injury or necrosis ? ?Note: Serial measurement may be necessary to confirm or exclude the diagnosis of myocardial injury or necrosis; Clinical correlation (symptoms, EKGs, imaging studies, and others) required; Repeat in 4-6 hours if clinically indicated. ? Equal or Higher than 0.121 ng/mL---Abnormal. Myocardial Injury or Necrosis Likely ? Biotin has been reported to cause a negative bias, interpret results relative to patient's use of biotin. ? Lab Interpretation Abnormal (test code = 77955-1) [facility] HospitalURINE [facility]UG (IMMUNOASSAY) - COMPREHENSIVE DRUG [id number] 22:21:00 Test Item Value Reference Range Interpretation Comments AMPHET (test code = Negative Negative 0403574668) HERMILO U (test code = Negative Negative 5220422378) BENZO U (test code = Negative Negative 3379956441) Cocaine Metabolite (test Negative Negative code = 4025175452) METHADONE (test code = Negative Negative 8185790774) OPIATES (test code = Negative Negative 9236068167) PCP (test code = Negative Negative 7715566700) THC (test code = Negative Negative 5406881086) SIMI (test code = SIMI) Urine Drug Cutoff Ranges Cocaine: ? 150 ng/mLBenzodiazepines: ? ? 200 ng/mLMethadone: ? 300 ng/mLAmphetamine: ? 1,000 ng/mLOpiates: ? 300 ng/mLCannabinoids: ?50 ng/mLPhencyclidine: ? ? ? 25 ng/mLBarbiturates: ?200 ng/mL The results are to be used only for medical (i.e., treatment) purposes. Unconfirmed screening results must not be used for non-medical purposes (e.g., employment testing, legal testing). Lab Interpretation (test Normal code = 61571-5) [facility] HospitalTROPONIN [id number] 20:03:00 Test Item Value Reference Range Interpretation Comments TROPONIN I (test 0.373 ng/mL See_Comment H [Automated code = 7759765743) message] The system which generated this result transmitted reference range : <=0.034. The reference range was not used to interpret this result as normal/abnormal . SIMI (test code = Equal or Less than SIMI) 0.034 ng/ml---Normal ?Note: Cardiac troponin begins to rise 3-4 hours after the onset of ischemia. Repeat in 4-6 hours if the sample was drawn within 3-4 hours of the onset of the symptom and found normal. Between 0.035 and 0.120 ng/mL--- Borderline. Questionable myocardial injury or necrosis ? ?Note: Serial measurement may be necessary to confirm or exclude the diagnosis of myocardial injury or necrosis; Clinical correlation (symptoms, EKGs, imaging studies, and others) required; Repeat in 4-6 hours if clinically indicated. ? Equal or Higher than 0.121 ng/mL---Abnormal. Myocardial Injury or Necrosis Likely ? Biotin has been reported to cause a negative bias, interpret results relative to patient's use of biotin. ? Lab Interpretation Abnormal (test code = 12124-8) [facility] HospitalTHYROID STIMULATING [id number] 13:55:00 Test Item Value Reference Range Interpretation Comments TSH (test code = See_Comment L [Automated message] 7186971591) The system ubigrate generated this result transmitted ref erence range: 0.45 - 4 .70 mIU/L. The refe rence range was not u sed to interpret this result as normal/abnor mal. Lab Interpretation (test Abnormal code = 51971-4) [facility] HospitalFERRITIN [id number] 13:52:00 Test Item Value Reference Range Interpretation Comments FERRITIN (test code = 15.8 ng/mL 11-264 3897657842) SIMI (test code = SIMI) Biotin has been reported to cause a negative bias, interpret results relative to patient's use of biotin. Lab Interpretation (test Normal code = 85958-7) [facility] HospitalTROPONIN [id number] 13:30:00 Test Item Value Reference Range Interpretation Comments TROPONIN I (test 0.448 ng/mL See_Comment H [Automated code = 4244653353) message] The system which generated this result transmitted reference range : <=0.034. The reference range was not used to interpret this result as normal/abnormal . SIMI (test code = Equal or Less than SIMI) 0.034 ng/ml---Normal ?Note: Cardiac troponin begins to rise 3-4 hours after the onset of ischemia. Repeat in 4-6 hours if the sample was drawn within 3-4 hours of the onset of the symptom and found normal. Between 0.035 and 0.120 ng/mL--- Borderline. Questionable myocardial injury or necrosis ? ?Note: Serial measurement may be necessary to confirm or exclude the diagnosis of myocardial injury or necrosis; Clinical correlation (symptoms, EKGs, imaging studies, and others) required; Repeat in 4-6 hours if clinically indicated. ? Equal or Higher than 0.121 ng/mL---Abnormal. Myocardial Injury or Necrosis Likely ? Biotin has been reported to cause a negative bias, interpret results relative to patient's use of biotin. ? Lab Interpretation Abnormal (test code = 67949-3) [facility] HospitalN-TERMINAL [id number] 13:30:00 Test Item Value Reference Range Interpretation Comments NT-proBNP (test code 1070 pg/mL See_Comment H [Autom ated = 8038378509) message] The system which generated this result transmitted reference range : <=450. The reference range was not used to interpret this result as normal/abnormal . SIMI (test code = SIMI) Biotin has been reported to cause a negative bias, interpret results relative to patient's use of biotin. Lab Interpretation Abnormal (test code = 51674-6) [facility] HospitalPROTHROMBIN TIME / [id number] 13:22:00 Test Item Value Reference Range Interpretation Comments PROTIME PATIENT (test See_Comment [Auto mated message] code = 5964-2) The system [employer] generated this result transmitted ref erence range: 10.1 - 1 2.6 Seconds. The re ference range was not u sed to interpret this result as normal/abnor mal. INR (test code = 6301-6) Nor mal INR <1.1; Warfarin Therap eutic range 2.0 to 3. 0 or 2.5 to 3.5, dep ending upon the indica tions. Lab Interpretation (test Normal code = 69486-0) [facility] HospitalACTIVATED PARTIAL THRMPLAS [id number] 13:22:00 Test Item Value Reference Range Interpretation Comments APTT Patient (test code = See_Comment [ Automated message] 3173-2) The system [employer] generated this result transmitted ref erence range: 26 - 36 Seconds. The re ference range was not u sed to interpret this result as normal/abnor mal. Lab Interpretation (test Normal code = 76423-0) [facility]MAGNESIUM2021-02-28 13:18:00 Test Item Value Reference Range Interpretation Comments MAGNESIUM (test code = 0895971105) 2.4 mg/dL 1.7-2.4 Lab Interpretation (test code = Normal 91679-2) [facility] HospitalPHOSPHORUS2021-02-28 13:18:00 Test Item Value Reference Range Interpretation Comments PHOSPHORUS (test code = 1048578340) 3.2 mg/dL 2.5-5 Lab Interpretation (test code = Normal 77756-3) [facility] HospitalBASIC METABOLIC PANEL (NA, K, CL, CO2, GLUCOSE, BUN, CREATININE, CA)2020-06-26 13:18:00 Test Item Value Reference Range Interpretation Comments NA (test code = 139 mmol/L 135-145 1333345921) K (test code = 3.8 mmol/L 3.5-5 4901657526) CL (test code = 104 mmol/L 98-108 3703171554) CO2 TOTAL (test code = 29 mmol/L 23-31 4811029677) AGAP (test code = 2-16 6649406733) BUN (test code = 13 mg/dL 7-23 0746404690) GLUCOSE (test code = 107 mg/dL 70-110 6025346954) CREATININE (test code 0.59 mg/dL 0.5-1.04 = 9557842889) CALCIUM (test code = 9.2 mg/dL 8.6-10.6 0227603338) eGFR Calculation mL/min/1.73m2 (Non-) (test code = 1628574163) eGFR Calculation mL/min/1.73m2 () (test code = 8150146635) SIMI (test code = SIMI) Association of Glomerular Filtration Rate (GFR) and Staging of Kidney Disease* + -+ + ---+| GFR (mL/min/1.73 m2) ?| With Kidney Damage ?| ?Without Kidney Damage+ -------+ ------+ ---------+| ?>90 ?| ?Stage one ?| ? Normal ?+ --+ -+ ----+| ?60-89 ?| ?Stage two ?| ? Decreased GFR ? + -+ + ---+| ?30-59 ?| ?Stage three ?| ? Stage three ? + -+ + ---+| ?15-29 ?| ?Stage four ? | ? Stage four ?+ --+ -+ ----+| ?<15 (or dialysis) ? ?| ?Stage five ? | ? Stage five ?+ --+ -+ ----+ *Each stage assumes the associated GFR level has been in effect for at least three months. ?Stages 1 to 5, with or without kidney disease, indicate chronic kidney disease. Notes: Determination of stages one and two (with eGFR >59mL/min/1.73 m2) requires estimation of kidney damage for at least three months as defined by structural or functional abnormalities of the kidney, manifested by either:Pathological abnormalities or Markers of kidney damage (including abnormalities in the composition of the blood or urine or abnormalities in imaging tests). [facility] HospitalFREE [id number] 12:38:00 Test Item Value Reference Range Interpretation Comments FREE T4 (test code = See_Comment [Autom ated message] 7100255022) The system [employer]ig[employer] generated this result transmitted ref erence range: 0.78 - 2 .20 ng/dL:. The ref erence range was not u sed to interpret this result as normal/abnor mal. Lab Interpretation (test Normal code = 73108-7) [facility] HospitalGLYCOSYLATED HEMOGLOBIN (A1C)2020-06-26 12:22:00 Test Item Value Reference Range Interpretation Comments HGB A1C (test code = 4548-4) 5.7 % 4-6 Lab Interpretation (test code = Normal 63848-1) [facility] HospitalLIPID PANEL (71480)(TOTAL CHOLESTEROL, TRIGLYCERIDES, HDL)2020-06-26 12:08:00 Test Item Value Reference Range Interpretation Comments CHOL (test code = 151 mg/dL 120-200 9519659678) HDL (test code = 22 mg/dL >50 L 9232806141) HDLC RATIO (test code = See_Comment H [Au tomated message] 0649196959) The system ub[employer] generated this result transmit serenity reference range : <=4.5. The refe rence range was not u sed to interpret th is result as normal/abnormal . TRIG (test code = 212 mg/dL 30-170 H 5935736741) LDL CHOL (test code = 87 mg/dL See_Comment [Auto mated message] 19977-3) The system [employer] generated this result transmit serenity reference range : <=160. The refe rence range was not u sed to interpret th is result as normal/abnormal . VLDL (test code = 42 mg/dL 5-60 9165093692) Lab Interpretation (test Abnormal code = 90551-6) [facility] HospitalCT ABDOMEN PELVIS W [id number] 05:46:[address] findings. Bilateral mild hydronephrosis and proximal hydroureter with noobstructingradiopaque ureteral stone. The possibility of a ureteral strictures cannotbe excluded particularly on the left. The bladder is also mildly distended;clinical correlation is necessary to exclu de possibility of a bladderoutlet obstruction or neurogenic bladder. Sigmoid diverticulosis without diverticulitis. Preliminary Report Dictated by Resident: Laura Yepez I, Luis Fox MD., have reviewed this study and agree with the abovereport.CT ABDOMEN PELVIS W CONTRAST HISTORY: 75 years-old; Female; Abdominal pain, acute, nonlocalized COMPARISON: None TECHNIQUE AND FINDINGS: Contiguous axial imaging from the level of the lungbases through the pubic symphysis was performed after the uncomplicatedadministration of 120 cc of intravenous Omnipaque contrast. Coronal andsagittal reconstructions were obtained. ?Auto mA and/or iterativereconstruction were used to reduce radiation dose. FINDINGS: LOWER THORAX: Stroke opacities involving the basal segments of bilaterallower lobes likely due to atelectasis. LIVER: No focal hepatic lesions. Normal contour. GALLBLADDER AND BILIARY TREE: No intra or extrahepatic biliary ductaldilation. No gallbladder wall thickening. SPLEEN: Unremarkable. PANCREAS: No ductal dilation or masses. ADRENAL GLANDS: No adrenal mass. KIDNEYS: Bilateral mild hydronephrosis and proximal hydroureter is notedwith a transition point in the proximal 3rd of the ureters bilaterally(2:80) with no obstructing radiodense stone. There is no radiopaque renalstone. The renal cortices enhance symmetrically with no focal mass. Theremay be a couple to a few left renal peripelvic cysts also present. PERITONEUM AND RETROPERITONEUM: No free air or fluid collection. LYMPH NODES: No intra-abdominal or pelvic lymph node enlargement. GI TRACT: No dilation or bowel wall thickening. A few descending andsigmoid colon diverticula are noted with no CT evidence of diverticulitis.Appendix is normal. PELVIS/BLADDER: Bladder is mildly distended with no wall thickening. Theuterus is absent. VESSELS:Unremarkable. BONES AND SOFT TISSUES: No suspicious lytic or sclerotic bony lesions.Grade 1 anterolis thesis of L4 over L5 is seen. Lines/Tubes/Devices/Hardware: None [facility], Radiant Results Inft User - 06/25/2020 11:47 PM CSTCT ABDOMEN PELVIS W CONTRASTHISTORY: 75 years-old; Female; Abdominal pain, acute, nonlocalized COMPARISON: NoneTECHNIQUE AND FINDINGS: Contiguous axial imaging from the level of the lungbases through the pubic symphysis was performed after the uncomplicatedadministration of 120 ccof intravenous Omnipaque contrast. Coronal andsagittal reconstructions were obtained. Auto mA and/oriterativereconstruction were used to reduce radiation dose.FINDINGS:LOWER THORAX: Stroke opacities in volving the basal segments of bilaterallower lobes likely due to atelectasis.LIVER: No focal hepaticlesions. Normal contour.GALLBLADDER AND BILIARY TREE: No intra or extrahepatic biliary ductaldilation. No gallbladder wall thickening.SPLEEN: Unremarkable.PANCREAS: No ductal dilation or masses.ADRENALGLANDS: No adrenal mass.KIDNEYS: Bilateral mild hydronephrosis and proximal hydroureter is notedwitha transition point in the proximal 3rd of the ureters bilaterally(2:80) with no obstructing radiodense stone. There is no radiopaque renalstone. The renal cortices enhance symmetrically with no focal ma ss. Theremay be a couple to a few left renal peripelvic cysts also present.PERITONEUM AND RETROPERITONEUM: No free air or fluid collection.LYMPH NODES: No intra-abdominal or pelvic lymph node enlargement.GI TRACT: No dilation or bowel wall thickening. A few descending andsigmoid colon diverticula are n oted with no CT evidence of diverticulitis.Appendix is normal.PELVIS/BLADDER: Bladder is mildly distended with no wall thickening. Theuterus is absent.VESSELS: Unremarkable.BONES AND SOFT TISSUES: No suspicious lytic or sclerotic bony lesions.Grade 1 anterolisthesis of L4 over L5 is seen.Lines/Tubes/Devices/Hardware: NoneIMPRESSIONNo acute abdominopelvic CT findings.Bilateral mild hydronephrosis and proximal hydroureter with no obstructingradiopaque ureteral stone. The possibility of a ureteral strictures cannotbe excluded particularly on the left. The bladder is also mildly distended;clinical correlation is necessary to exclude possibility of a bladderoutlet obstruction or neurogenic bladder.Sigmoid diverticulosis without diverticulitis.Preliminary Report Dictated by Resident: Luis Newberry MD., have reviewed this study and agree with the abovereport.[facility] HospitalCOVID-19 (ID NOW RAPID TESTING)2020-06-26 05:04:00 Test Item Value Reference Range Interpretation Comments SARS-CoV-2 Rapid ID NOW Not Detected Not Detected (test code = 25808-5) SIMI (test code = SIMI) ID NOW COVID-19 Assay is an isothermal nucleic acid amplification test intended for the qualitative detection of nucleic acid from SARS-CoV-2 viral RNA in nasopharyngeal (PAPER RULER) specimens. It is used under Emergency Use Authorization (EUA) by FDA. The limit of detection (LOD) of the assay is 125 Genome Equivalents/mL. A positive result is indicative of the presence of SARS-CoV-2 RNA. ?Clinical correlation with patient history and other diagnostic information is necessary to determine patient infection status. A negative (Not Detected) result does not preclude SARS-CoV-2 infection. In patients with clinical symptoms and other tests that are consistent with SARS-CoV-2 infection, negative results should be treated as presumptive negative and a new specimen should be tested with alternative PCR molecular test. Invalid: Please collect a new specimen for repeat patient testing if clinically indicated. Lab Interpretation Normal (test code = 13705-1) [facility] HospitalANA [id number] 04:38:00 Test Item Value Reference Range Interpretation Comments TROPONIN I (test 0.004 ng/mL See_Comment [Automated code = 5241354754) message] The system which generated this result transmitted reference range : <=0.034. The reference range was not used to interpret this result as normal/abnormal . SIMI (test code = Equal or Less than SIMI) 0.034 ng/ml---Normal ?Note: Cardiac troponin begins to rise 3-4 hours after the onset of ischemia. Repeat in 4-6 hours if the sample was drawn within 3-4 hours of the onset of the symptom and found normal. Between 0.035 and 0.120 ng/mL--- Borderline. Questionable myocardial injury or necrosis ? ?Note: Serial measurement may be necessary to confirm or exclude the diagnosis of myocardial injury or necrosis; Clinical correlation (symptoms, EKGs, imaging studies, and others) required; Repeat in 4-6 hours if clinically indicated. ? Equal or Higher than 0.121 ng/mL---Abnormal. Myocardial Injury or Necrosis Likely ? Biotin has been reported to cause a negative bias, interpret results relative to patient's use of biotin. ? Lab Interpretation Normal (test code = 20265-6) [facility]. METABOLIC PANEL (83694)2020-06-26 04:26:00 Test Item Value Reference Range Interpretation Comments NA (test code = 139 mmol/L 135-145 1920582235) K (test code = 3.9 mmol/L 3.5-5 9902868481) CL (test code = 104 mmol/L 98-108 4917479193) CO2 TOTAL (test code = 26 mmol/L 23-31 4016132028) AGAP (test code = 2-16 4849737277) BUN (test code = 15 mg/dL 7-23 0730010455) GLUCOSE (test code = 121 mg/dL 70-110 H 1174800433) CREATININE (test code = 0.57 mg/dL 0.5-1.04 0720232097) TOTAL BILI (test code = 0.4 mg/dL 0.1-1.4 4616117868) CALCIUM (test code = 9.3 mg/dL 8.6-10.6 7729533047) T PROTEIN (test code = 7.9 g/dL 6.3-8.2 8055747736) ALBUMIN (test code = 4.6 g/dL 3.5-5 2817654825) ALK PHOS (test code = 74 U/L 34-122 6218875121) ALTv (test code = 13 U/L 5-35 1742-6) AST(SGOT) (test code = 24 U/L 13-40 2224967828) eGFR Calculation mL/min/1.73m2 (Non-) (test code = 1321916848) eGFR Calculation mL/min/1.73m2 () (test code = 3301057510) SIMI (test code = SIMI) Association of Glomerular Filtration Rate (GFR) and Staging of Kidney Disease* + --+ --+ ------+| GFR (mL/min/1.73 m2) ?| With Kidney Damage ?| ?Without Kidney Damage+ --------+ --------+ +| ?>90 ?| ?Stage one ?| ? Normal ?+ ---+ ---+ -------+| ?60-89 ?| ?Stage two ?| ? Decreased GFR ? + --+ --+ ------+| ?30-59 ?| ?Stage three ?| ? Stage three ? + --+ --+ ------+| ?15-29 ?| ?Stage four ? | ? Stage four ?+ ---+ ---+ -------+| ?<15 (or dialysis) ? ?| ?Stage five ? | ? Stage five ?+ ---+ ---+ -------+ *Each stage assumes the associated GFR level has been in effect for at least three months. ?Stages 1 to 5, with or without kidney disease, indicate chronic kidney disease. Notes: Determination of stages one and two (with eGFR >59mL/min/1.73 m2) requires estimation of kidney damage for at least three months as defined by structural or functional abnormalities of the kidney, manifested by either:Pathological abnormalities or Markers of kidney damage (including abnormalities in the composition of the blood or urine or abnormalities in imaging tests). Lab Interpretation Abnormal (test code = 75099-7) [facility] Test Item Value Reference Range Interpretation Comments LIPASE (test code = 1020101915) 277 U/L 0-220 H Lab Interpretation (test code = Abnormal 62362-3) [facility] 04:09:00 Test Item Value Reference Range Interpretation Comments APPEARANCE (test code = Clear Clear 6428540280) COLOR (test code = Colorless Yellow A 8713729053) PH (test code = 4.8-8.0 2280467534) SP GRAVITY (test code = 1.003-1.030 6139731026) GLU U QUAL (test code = Normal Normal 8340575818) BLOOD (test code = Negative Negative 7149929078) KETONES (test code = Negative Negative 8733797056) PROTEIN (test code = Negative Negative 2887-8) UROBILIN (test code = Normal Normal 3123550250) BILIRUBIN (test code = Negative Negative 6122518915) NITRITE (test code = Negative Negative 3148141701) LEUK JAKY (test code = Negative Negative 7281399653) RBC/HPF (test code = See_Comment [Autom ated message] 0905024728) The system ubigrate generated this result transmit serenity reference range : 0 - 3 HPF. The refe rence range was not u sed to interpret th is result as normal/abnormal . WBC/HPF (test code = <1 See_Comment [Autom ated message] 0361218598) The system ubigrate generated this result transmit serenity reference range : 0 - 5 HPF. The refe rence range was not u sed to interpret th is result as normal/abnormal . BACTERIA (test code = Few Negative A 7519547562) Lab Interpretation (test Abnormal code = 29667-2) [facility] WITH [id number] 04:03:00 Test Item Value Reference Range Interpretation Comments WBC (test code = See_Comment [Automated 6690-2) message] The sy stem which generated this result transmitted reference range : 4.30 - 11.10 10*3/?L. The reference range was not used to interpret this result as normal/abnormal . RBC (test code = See_Comment [Automated 789-8) message] The sy stem which generated this result transmitted reference range : 3.93 - 5.25 10*6/?L. The reference range was not used to interpret this result as normal/abnormal . HGB (test code = 12.3 g/dL 11.6-15 718-7) HCT (test code = 37.8 % 35.7-45.2 4544-3) MCV (test code = 93.6 fL 80.6-95.5 787-2) MCH (test code = 30.4 pg 25.9-32.8 785-6) MCHC (test code = 32.5 g/dL 31.6-35.1 786-4) RDW-SD (test code = 45.0 fL 39-49.9 55517-7) RDW-CV (test code = 13.1 % 12-15.5 788-0) PLT (test code = See_Comment [Automated 777-3) message] The sy stem which generated this result transmitted reference range : 166 - 358 10*3/ ?L. The reference r amina was not used to interpret this result as normal/abnormal . MPV (test code = 11.1 fL 9.5-12.9 59643-2) NRBC/100 WBC (test See_Comment [Automat ed code = 4074088386) message] The system which generated this result transmitted reference range : 0.0 - 10.0 /100 WBCs. The refer ence range was not u sed to interpret th is result as normal/abnormal . NRBC x10^3 (test code <0.01 See_Comment [Auto mated = 2975095422) message] The s ystem which generated this result transmitted reference range : 10*3/?L. The reference range was not used to interpret this result as normal/abnormal . GRAN MAT (NEUT) % 44.8 % (test code = 770-8) IMM GRAN % (test code 0.90 % = 9076578245) LYMPH % (test code = 42.4 % 736-9) MONO % (test code = 7.2 % 5905-5) EOS % (test code = 2.7 % 713-8) BASO % (test code = 2.0 % 706-2) GRAN MAT x10^3(ANC) 3.31 10*3/uL 1.88-7.09 (test code = 0082970436) IMM GRAN x10^3 (test 0.07 10*3/uL 0-0.06 H code = 5467002012) LYMPH x10^3 (test code 3.14 10*3/uL 1.32-3.29 = 731-0) MONO x10^3 (test code 0.53 10*3/uL 0.33-0.92 = 742-7) EOS x10^3 (test code = 0.20 10*3/uL 0.03-0.39 711-2) BASO x10^3 (test code 0.15 10*3/uL 0.01-0.07 H = 704-7) Lab Interpretation Abnormal (test code = 93690-2) [facility]2020-08-[facility] 11:56:00 Test Item Value Reference Range Interpretation Comments FOLATE SER (test code = >20.0 3-20 H Biot in has been 0758993655) reported to cau se a positive bias, interpret resul ts relative to patient's use o f biotin. Lab Interpretation (test Abnormal code = 22774-2) [facility] with [id number] 10:47:00 Test Item Value Reference Range Interpretation Comments WBC (test code = See_Comment [Automated 6690-2) message] The sy stem which generated this result transmitted reference range : 4.30 - 11.10 10*3/?L. The reference range was not used to interpret this result as normal/abnormal . RBC (test code = See_Comment [Automated 789-8) message] The sy stem which generated this result transmitted reference range : 3.93 - 5.25 10*6/?L. The reference range was not used to interpret this result as normal/abnormal . HGB (test code = 12.4 g/dL 11.6-15 718-7) HCT (test code = 37.5 % 35.7-45.2 4544-3) MCV (test code = 91.2 fL 80.6-95.5 787-2) MCH (test code = 30.2 pg 25.9-32.8 785-6) MCHC (test code = 33.1 g/dL 31.6-35.1 786-4) RDW-SD (test code = 42.0 fL 39-49.9 26642-4) RDW-CV (test code = 12.8 % 12-15.5 788-0) PLT (test code = See_Comment [Automated 777-3) message] The sy stem which generated this result transmitted reference range : 166 - 358 10*3/ ?L. The reference r amina was not used to interpret this result as normal/abnormal . MPV (test code = 11.8 fL 9.5-12.9 19957-1) IPF % (test code = 6.7 % 1.3-7.7 Platelet count 1303496055) measured by fluorescence method. NRBC/100 WBC (test See_Comment [Automat ed code = 4822454982) message] The system which generated this result transmitted reference range : 0.0 - 10.0 /100 WBCs. The refer ence range was not u sed to interpret th is result as normal/abnormal . NRBC x10^3 (test code <0.01 See_Comment [Auto mated = 3627558188) message] The s ystem which generated this result transmitted reference range : 10*3/?L. The reference range was not used to interpret this result as normal/abnormal . GRAN MAT (NEUT) % 53.7 % (test code = 770-8) IMM GRAN % (test code 0.30 % = 8945979446) LYMPH % (test code = 36.1 % 736-9) MONO % (test code = 6.4 % 5905-5) EOS % (test code = 1.9 % 713-8) BASO % (test code = 1.6 % 706-2) GRAN MAT x10^3(ANC) 3.60 10*3/uL 1.88-7.09 (test code = 2230383227) IMM GRAN x10^3 (test <0.03 0-0.06 code = 3398014926) LYMPH x10^3 (test code 2.42 10*3/uL 1.32-3.29 = 731-0) MONO x10^3 (test code 0.43 10*3/uL 0.33-0.92 = 742-7) EOS x10^3 (test code = 0.13 10*3/uL 0.03-0.39 711-2) BASO x10^3 (test code 0.11 10*3/uL 0.01-0.07 H = 704-7) Lab Interpretation Abnormal (test code = 40374-9) [id number] Test Item Value Reference Range Interpretation Comments TROPONIN I (test <0.012 See_Comment [Automated code = 8743048946) message] The system which generated this result transmitted reference range : <=0.034 ng/mL. The reference range was not used to interpr et this result as normal/abnormal . SIMI (test code = Equal or Less than SIMI) 0.034 ng/ml---Normal ?Note: Cardiac troponin begins to rise 3-4 hours after the onset of ischemia. Repeat in 4-6 hours if the sample was drawn within 3-4 hours of the onset of the symptom and found normal. Between 0.035 and 0.120 ng/mL--- Borderline. Questionable myocardial injury or necrosis ? ?Note: Serial measurement may be necessary to confirm or exclude the diagnosis of myocardial injury or necrosis; Clinical correlation (symptoms, EKGs, imaging studies, and others) required; Repeat in 4-6 hours if clinically indicated. ? Equal or Higher than 0.121 ng/mL---Abnormal. Myocardial Injury or Necrosis Likely ? Biotin has been reported to cause a negative bias, interpret results relative to patient's use of biotin. ? Lab Interpretation Normal (test code = 80480-8) [facility] (NA, K, CL, CO2, GLUCOSE, BUN, CREATININE, CA)2019-12-22 10:03:00 Test Item Value Reference Range Interpretation Comments NA (test code = 136 mmol/L 135-145 2587551826) K (test code = 3.5 mmol/L 3.5-5 9620223654) CL (test code = 105 mmol/L 98-108 5477694458) CO2 TOTAL (test code = 27 mmol/L 23-31 8105527694) AGAP (test code = 2-16 1670976903) BUN (test code = 18 mg/dL 7-23 2054102029) GLUCOSE (test code = 102 mg/dL 70-110 1005568702) CREATININE (test code 0.65 mg/dL 0.5-1.04 = 3796053850) CALCIUM (test code = 9.4 mg/dL 8.6-10.6 1345142430) eGFR Calculation mL/min/1.73m2 (Non-) (test code = 2636335570) eGFR Calculation mL/min/1.73m2 () (test code = 0312178744) SIMI (test code = SIMI) Association of Glomerular Filtration Rate (GFR) and Staging of Kidney Disease* + -+ + ---+| GFR (mL/min/1.73 m2) ?| With Kidney Damage ?| ?Without Kidney Damage+ -------+ ------+ ---------+| ?>90 ?| ?Stage one ?| ? Normal ?+ --+ -+ ----+| ?60-89 ?| ?Stage two ?| ? Decreased GFR ? + -+ + ---+| ?30-59 ?| ?Stage three ?| ? Stage three ? + -+ + ---+| ?15-29 ?| ?Stage four ? | ? Stage four ?+ --+ -+ ----+| ?<15 (or dialysis) ? ?| ?Stage five ? | ? Stage five ?+ --+ -+ ----+ *Each stage assumes the associated GFR level has been in effect for at least three months. ?Stages 1 to 5, with or without kidney disease, indicate chronic kidney disease. Notes: Determination of stages one and two (with eGFR >59mL/min/1.73 m2) requires estimation of kidney damage for at least three months as defined by structural or functional abnormalities of the kidney, manifested by either:Pathological abnormalities or Markers of kidney damage (including abnormalities in the composition of the blood or urine or abnormalities in imaging tests). [facility] [id number] 09:13:00 Test Item Value Reference Range Interpretation Comments IRON (test code = 6489973953) 85 ug/dL 50-160 TIBC (test code = 6338032303) 394 ug/dL 250-410 % FE SAT (test code = 6160840700) 22 % 20-50 Lab Interpretation (test code = Normal 31327-0) [facility] [id number] 04:14:00 Test Item Value Reference Range Interpretation Comments TROPONIN I (test <0.012 See_Comment [Automated code = 9674955300) message] The system which generated this result transmitted reference range : <=0.034 ng/mL. The reference range was not used to interpr et this result as normal/abnormal . SIMI (test code = Equal or Less than SIMI) 0.034 ng/ml---Normal ?Note: Cardiac troponin begins to rise 3-4 hours after the onset of ischemia. Repeat in 4-6 hours if the sample was drawn within 3-4 hours of the onset of the symptom and found normal. Between 0.035 and 0.120 ng/mL--- Borderline. Questionable myocardial injury or necrosis ? ?Note: Serial measurement may be necessary to confirm or exclude the diagnosis of myocardial injury or necrosis; Clinical correlation (symptoms, EKGs, imaging studies, and others) required; Repeat in 4-6 hours if clinically indicated. ? Equal or Higher than 0.121 ng/mL---Abnormal. Myocardial Injury or Necrosis Likely ? Biotin has been reported to cause a negative bias, interpret results relative to patient's use of biotin. ? Lab Interpretation Normal (test code = 39043-2) [facility] HospitalFERRITIN [id number] 03:41:00 Test Item Value Reference Range Interpretation Comments FERRITIN (test code = 11.6 ng/mL 11-264 1067489404) SIMI (test code = SIMI) Biotin has been reported to cause a negative bias, interpret results relative to patient's use of biotin. Lab Interpretation (test Normal code = 99103-9) [facility] HospitalTHYROID STIMULATING [id number] 03:37:00 Test Item Value Reference Range Interpretation Comments TSH (test code = See_Comment Biotin has been 9269807792) reported to cau se a negative bias, interpret resul ts relative to pat ient's use of biotin. [Automated mess age] The system ubigrate generated this result transmitted ref erence range: 0.45 - 4 .70 mIU/L. The refe rence range was not u sed to interpret this result as normal/abnor mal. Lab Interpretation (test Normal code = 35080-0) [facility] HospitalGLYCOSYLATED HEMOGLOBIN (A1C)2019-12-22 03:17:00 Test Item Value Reference Range Interpretation Comments HGB A1C (test code = 5.8 % 4-6 4548-4) SIMI (test code = SIMI) %A1C (NGSP) Interpretation (ADA)4.8-5.6 ? ? Normal or (Non-Diabetic Range)5.7-6.4 ? ? Increased Risk (Pre-Diabetic)>6.5 ?Diabetes Indicated Lab Interpretation Normal (test code = 39246-8) [facility] HospitalCOVID[facility] (ID NOW RAPID TESTING)2019-12-21 23:28:00 Test Item Value Reference Range Interpretation Comments SARS-CoV-2 Rapid ID NOW Not Detected Not Detected (test code = 39046-6) SIMI (test code = SIMI) ID NOW COVID-19 Assay is an isothermal nucleic acid amplification test intended for the qualitative detection of nucleic acid from SARS-CoV-2 viral RNA in nasopharyngeal (PAPER RULER) specimens. It is used under Emergency Use Authorization (EUA) by FDA. The limit of detection (LOD) of the assay is 125 Genome Equivalents/mL. A positive result is indicative of the presence of SARS-CoV-2 RNA. ?Clinical correlation with patient history and other diagnostic information is necessary to determine patient infection status. A negative (Not Detected) result does not preclude SARS-CoV-2 infection. In patients with clinical symptoms and other tests that are consistent with SARS-CoV-2 infection, negative results should be treated as presumptive negative and a new specimen should be tested with alternative PCR molecular test. Invalid: Please collect a new specimen for repeat patient testing if clinically indicated. Lab Interpretation Normal (test code = 06353-6) [facility] HospitalUrinalysis2020-08-24 22:58:00 Test Item Value Reference Range Interpretation Comments APPEARANCE (test code = Cloudy Clear A 2041271299) COLOR (test code = Yellow Yellow 3131294826) PH (test code = 4.8-8.0 7840062579) SP GRAVITY (test code = 1.003-1.030 0020667428) GLU U QUAL (test code = Normal Normal 3324601751) BLOOD (test code = Negative Negative 2214913323) KETONES (test code = Negative Negative 7864748413) PROTEIN (test code = Negative Negative 2887-8) UROBILIN (test code = Normal Normal 1605664566) BILIRUBIN (test code = Negative Negative 4994703132) NITRITE (test code = Positive Negative A 2273885322) LEUK JAKY (test code = Negative Negative 2374763903) RBC/HPF (test code = <1 See_Comment [Autom ated message] 7130380297) The system ubigrate generated this result transmitted ref erence range: 0 - 3 HP F. The reference range was not used to int erpret this result as normal/abnormal . WBC/HPF (test code = See_Comment [Autom ated message] 7069720912) The system ubigrate generated this result transmitted ref erence range: 0 - 5 HP F. The reference range was not used to int erpret this result as normal/abnormal . BACTERIA (test code = Few Negative A 3147576123) AMORPHOUS (test code = Many Rare HPF A 4378921975) Lab Interpretation (test Abnormal code = 49377-3) [facility] HospitalCritical [id number] 22:20:22NeLokesh freeman MD ? ? 12/21/2019 ?5:20 PMCritical CarePerformed by: Lokesh Olivier MDAuthorized by: Lokesh Olivier MD Critical care provider statement: ?Critical care time (minutes): ?45 ?Criticalcare was necessary to treat or prevent imminent or life-threatening deterioration of the following conditions: ?Circulatory failure ?Critical care was time spent personally by me on the following activities: ?Blood draw for specimens, development of treatment plan with patient or surrogate, discussions with primary provider, evaluation of patient's response to treatment, examination of patient, ordering and performing treatments and interventions, ordering and review of laboratory studies, ordering and review of radiographic studies, pulse oximetry and re-evaluation of patient's conditionUnMichael E. DeBakey [facility] CenterCT [facility] W/O Contrast 2019-12-21 21:53:22 No acute intracranial abnormality.EXAM: CT HEAD WO CONTRAST HISTORY: Dizziness, persistent/recurrent, cardiac or vascular causesuspected TECHNIQUE: CT of the head was performed without intravenous contrast.Sagittal and coronal reformats were generated. COMPARISON: None. FINDINGS: The ventricles and sulci are normal in caliber and configuration. Nohydrocephalus, midline shift or pathological extra-axial fluid collectionis present. The basal cisterns are unremarkable. There is no acute intracranial hemorrhage or significant mass effect. Noparenchymal attenuation abnormality. The becerra-white matter dif ferentiationis preserved. Partial empty sella configuration noted. The mastoid air cells and paranasal air sinuses are clear. The calvariumand central skull base are unremarkable. [facility], Radiant ResultsInft User - 12/21/2019 4:54 PM CDTEXAM: CT HEAD WO CONTRASTHISTORY: Dizziness, persistent/recurrent,cardiac or vascular causesuspected TECHNIQUE: CT of the head was performed without intravenous contrast.Sagittal and coronal reformats were generated.COMPARISON: None.FINDINGS: The ventricles and sulciare normal in caliber and configuration. Nohydrocephalus, midline shift or pathological extra-axial fluid collectionis present. The basal cisterns are unremarkable.There is no acute intracranial hemorrhage or significant mass effect. Noparenchymal attenuation abnormality. The becerra-white matter differentiationis preserved.Partial empty sella configuration noted.The mastoid air cells and paranasal air sinuses are clear. The calvariumand central skull base are unremarkable.IMPRESSIONNo acute intracranial abnormality.[facility] Metabolic Panel (NA, K, CL, CO2, GLUCOSE, BUN, CREATININE, CA)2019-12-21 20:58:00 Test Item Value Reference Range Interpretation Comments NA (test code = 136 mmol/L 135-145 3612419460) K (test code = 3.7 mmol/L 3.5-5 3496822050) CL (test code = 103 mmol/L 98-108 4474704615) CO2 TOTAL (test code = 25 mmol/L 23-31 2818633751) AGAP (test code = 2-16 9617884472) BUN (test code = 18 mg/dL 7-23 0986170824) GLUCOSE (test code = 144 mg/dL 70-110 H 2698994367) CREATININE (test code = 0.57 mg/dL 0.5-1.04 1468831871) CALCIUM (test code = 9.5 mg/dL 8.6-10.6 8321253884) eGFR Calculation mL/min/1.73m2 (Non-) (test code = 8231486719) eGFR Calculation mL/min/1.73m2 () (test code = 2253290917) SIMI (test code = SIMI) Association of Glomerular Filtration Rate (GFR) and Staging of Kidney Disease* + --+ --+ ------+| GFR (mL/min/1.73 m2) ?| With Kidney Damage ?| ?Without Kidney Damage+ --------+ --------+ +| ?>90 ?| ?Stage one ?| ? Normal ?+ ---+ ---+ -------+| ?60-89 ?| ?Stage two ?| ? Decreased GFR ? + --+ --+ ------+| ?30-59 ?| ?Stage three ?| ? Stage three ? + --+ --+ ------+| ?15-29 ?| ?Stage four ? | ? Stage four ?+ ---+ ---+ -------+| ?<15 (or dialysis) ? ?| ?Stage five ? | ? Stage five ?+ ---+ ---+ -------+ *Each stage assumes the associated GFR level has been in effect for at least three months. ?Stages 1 to 5, with or without kidney disease, indicate chronic kidney disease. Notes: Determination of stages one and two (with eGFR >59mL/min/1.73 m2) requires estimation of kidney damage for at least three months as defined by structural or functional abnormalities of the kidney, manifested by either:Pathological abnormalities or Markers of kidney damage (including abnormalities in the composition of the blood or urine or abnormalities in imaging tests). Lab Interpretation Abnormal (test code = 08073-7) [facility] HospitalHep[facility] Function Panel (ALB, T.PRO, BILI T, BU/BC, ALT, AST, ALK PHOS)2019-12-21 20:58:00 Test Item Value Reference Range Interpretation Comments TOTAL BILI (test code = 7069553732) 0.3 mg/dL 0.1-1.1 BILI UNCON (test code = 7591045079) 0.5 mg/dL 0.1-1.1 BILI CONJ (test code = 0063836914) 0.0 mg/dL 0-0.3 T PROTEIN (test code = 1009513959) 7.7 g/dL 6.3-8.2 ALBUMIN (test code = 9158353480) 4.6 g/dL 3.5-5 ALK PHOS (test code = 1572584740) 81 U/L 34-122 ALTv (test code = 1742-6) 20 U/L 5-35 AST(SGOT) (test code = 8105433880) 24 U/L 13-40 Lab Interpretation (test code = Normal 81719-7) [facility] HospitalTroponin [id number] 20:58:00 Test Item Value Reference Range Interpretation Comments TROPONIN I (test <0.012 See_Comment [Automated code = 6825145026) message] The system which generated this result transmitted reference range : <=0.034 ng/mL. The reference range was not used to interpr et this result as normal/abnormal . SIMI (test code = Equal or Less than SIMI) 0.034 ng/ml---Normal ?Note: Cardiac troponin begins to rise 3-4 hours after the onset of ischemia. Repeat in 4-6 hours if the sample was drawn within 3-4 hours of the onset of the symptom and found normal. Between 0.035 and 0.120 ng/mL--- Borderline. Questionable myocardial injury or necrosis ? ?Note: Serial measurement may be necessary to confirm or exclude the diagnosis of myocardial injury or necrosis; Clinical correlation (symptoms, EKGs, imaging studies, and others) required; Repeat in 4-6 hours if clinically indicated. ? Equal or Higher than 0.121 ng/mL---Abnormal. Myocardial Injury or Necrosis Likely ? Biotin has been reported to cause a negative bias, interpret results relative to patient's use of biotin. ? Lab Interpretation Normal (test code = 17804-6) [facility] HospitalN-TERMINAL [id number] 20:58:00 Test Item Value Reference Range Interpretation Comments NT-proBNP (test code 309 pg/mL See_Comment [Autom ated = 5200506089) message] The system which generated this result transmitted reference range : <=450. The reference range was not used to interpret this result as normal/abnormal . SIMI (test code = SIMI) Biotin has been reported to cause a negative bias, interpret results relative to patient's use of biotin. Lab Interpretation Normal (test code = 53524-5) [facility] HospitalProthrombin Time (PT) / [id number] 20:46:00 Test Item Value Reference Range Interpretation Comments PROTIME PATIENT (test See_Comment [Auto mated message] code = 5964-2) The system wh ich generated this result transmitted ref erence range: 12.0 - 1 4.7 Seconds. The re ference range was not u sed to interpret this result as normal/abnor mal. INR (test code = 6301-6) Nor mal INR <1.1; Warfarin Therap eutic range 2.0 to 3. 0 or 2.5 to 3.5, dep ending upon the indica tions. Lab Interpretation (test Normal code = 58595-1) [facility] HospitalaPTT2020-08-24 20:45:00 Test Item Value Reference Range Interpretation Comments APTT Patient (test See_Comment [Automat ed code = 3173-2) message] The system which generated this result transmitted reference range : 23 - 38 Seconds . The reference range was not used to interpr et this result as normal/abnormal . SIMI (test code = SIMI) The [facility] patient population mean normal value for aPTT is 30 seconds. Lab Interpretation Normal (test code = 30778-4) [facility] [id number] 20:37:00 Test Item Value Reference Range Interpretation Comments WBC (test code = See_Comment [Automated 4590-2) message] The sy stem which generated this result transmitted reference range : 4.30 - 11.10 10*3/?L. The reference range was not used to interpret this result as normal/abnormal . RBC (test code = See_Comment [Automated 089-8) message] The sy stem which generated this result transmitted reference range : 3.93 - 5.25 10*6/?L. The reference range was not used to interpret this result as normal/abnormal . HGB (test code = 13.4 g/dL 11.6-15 718-7) HCT (test code = 40.1 % 35.7-45.2 4544-3) MCV (test code = 90.7 fL 80.6-95.5 787-2) MCH (test code = 30.3 pg 25.9-32.8 785-6) MCHC (test code = 33.4 g/dL 31.6-35.1 786-4) RDW-SD (test code = 41.5 fL 39-49.9 95698-7) RDW-CV (test code = 12.6 % 12-15.5 788-0) PLT (test code = See_Comment [Automated 777-3) message] The sy stem which generated this result transmitted reference range : 166 - 358 10*3/ ?L. The reference r amina was not used to interpret this result as normal/abnormal . MPV (test code = 11.3 fL 9.5-12.9 60075-7) NRBC/100 WBC (test See_Comment [Automat ed code = [id number]) message] The system which generated this result transmitted reference range : 0.0 - 10.0 /100 WBCs. The refer ence range was not u sed to interpret th is result as normal/abnormal . NRBC x10^3 (test code <0.01 See_Comment [Auto mated = [id number]) message] The s ystem which generated this result transmitted reference range : 10*3/?L. The reference range was not used to interpret this result as normal/abnormal . GRAN MAT (NEUT) % 77.7 % (test code = 770-8) IMM GRAN % (test code 0.40 % = 1005819517) LYMPH % (test code = 17.4 % 736-9) MONO % (test code = 3.0 % 5905-5) EOS % (test code = 0.1 % 713-8) BASO % (test code = 1.4 % 706-2) GRAN MAT x10^3(ANC) 5.75 10*3/uL 1.88-7.09 (test code = 5827181919) IMM GRAN x10^3 (test 0.03 10*3/uL 0-0.06 code = 8252790713) LYMPH x10^3 (test code 1.29 10*3/uL 1.32-3.29 L = 731-0) MONO x10^3 (test code 0.22 10*3/uL 0.33-0.92 L = 742-7) EOS x10^3 (test code = <0.03 0.03-0.39 L 711-2) BASO x10^3 (test code 0.10 10*3/uL 0.01-0.07 H = 704-7) Lab Interpretation Abnormal (test code = 48700-9) [facility]"
--- NOTE | 2022-01-06 18:44 | RAD REPORT ---
EXAM DESCRIPTION: CT - Head Brain Wo Cont - 01/06/2022 6:25 pm CLINICAL HISTORY: BP higher than normal, left arm tingling x 1 day COMPARISON: No comparisons TECHNIQUE: All CT scans are performed using dose optimization technique as appropriate and may inclu de automated exposure control or mA/KV adjustment according to patient size. FINDINGS: No intracranial hemorrhage, hydrocephalus or extra-axial fluid collection.No areas of brai n edema or evidence of midline shift. The paranasal sinuses and mastoids are clear. The calvarium is intact. IMPRESSION: No acute intracranial abnormality.
[2022-01-06 19:05] LABS: Absolute Lymphocytes (CBC) 1.5 K/uL (0.7-4.9); Hematocrit 35.5 % (36.0-45.0); Lymphocytes % 31.4 % (15.3-44.8); MCV 91.9 fL (80-100); MPV 8.9 fL (7.6-11.3); RBC Red Blood Cell Count 3.86 M/uL (3.86-4.86)
--- NOTE | 2022-01-06 19:14 | RAD REPORT ---
EXAM DESCRIPTION: RAD - Chest Single View - 01/06/2022 6:54 pm CLINICAL HISTORY: CHEST PAIN COMPARISON: Chest Single View dated 12/18/2021; Abdomen 1 View (KUB) dated 07/28/2020 FINDINGS: Lines: None. Lungs: No evidence of edema or pneumonia. Pleural: No significant pleural effusions or pneumothorax. A skin fold overlying the right hemithorax simulates a pneumothorax. Cardiac: Similar size and configuration. Coronary artery stents. Mediastinum: Within normal limits. Bones: No acute fractures. Other: None IMPRESSION: No acute cardiopulmonary disease.
[2022-01-06 19:22] LABS: Albumin 3.9 g/dL (3.4-5.0); Bilirubin Total 0.3 mg/dL (0.2-1.0); Potassium 3.3 mmol/L (3.5-5.1); Protein, Total 7.3 g/dL (6.4-8.2); Troponin High Sensitivity 26.2 pg/mL (<58.9)
[2022-01-06 19:37] LABS: Urine Blood Negative (Negative); Urine Glucose Negative (Negative); Urine Protein Negative (Negative)
--- NOTE | 2022-01-06 19:41 | EDPHYS ---
Physician Documentation [facility] Name: Gilda Smith Age: 76 yrs Sex: Female : 1945 Arrival Date: 01/06/2022 Time: 17:41 Bed 7 Private MD: ED Physician Carlton Velasquez HPI: 01/06 17:58 This 76 yrs old Female presents to ER via Wheelchair with complaints of having jl9 an episode of anxiety ealier and then she felt her hand get numb for about 10 seconds, and she also had about 10 seconds of chest pain, now resolved. Patient denies any current symptoms and denies any pain or distress. . 17:58 The complaints affect the left hand. Onset: The symptoms/episode began/occurred today. jl9 Treatment prior to arrival includes: no previous treatment. Associated signs and symptoms: The patient has no apparent associated signs or symptoms. The patient has experienced similar episodes in the past. Historical: - Allergies: 17:42 No Known Allergies; kr3 - PMHx: 17:42 Hypertension; Hypothyroidism; Myocardial infarction; kr3 - PSHx: 17:42 Heart Stents; kr3 - Immunization history:: Client reports receiving the 2nd dose of the Covid vaccine. - Social history:: Smoking status: Patient denies any tobacco usage or history of. ROS: 18:00 Constitutional: Negative for fever, chills, and weight loss, Eyes: Negative for injury, jl9 pain, redness, and discharge, ENT: Negative for injury, pain, and discharge, Neck: Negative for injury, pain, and swelling, Cardiovascular: Negative for chest pain, palpitations, and edema, Respiratory: Negative for shortness of breath, cough, wheezing, and pleuritic chest pain. 18:01 Abdomen/GI: Negative for abdominal pain, nausea, vomiting, diarrhea, and constipation, jl9 Back: Negative for injury and pain, : Negative for injury, bleeding, discharge, and swelling, MS/Extremity: Negative for injury and deformity, Skin: Negative for injury, rash, and discoloration. 18:01 Psych: Negative for depression, anxiety, suicide ideation, homicidal ideation, and hallucinations, Allergy/Immunology: Negative for hives, rash, and allergies, Endocrine: Negative for neck swelling, polydipsia, polyuria, polyphagia, and marked weight changes, Hematologic/Lymphatic: Negative for swollen nodes, abnormal bleeding, and unusual bruising. 18:01 Neuro: Positive for tingling, episode earlier today when hyperventilating. . Exam: 18:01 Constitutional: This is a well developed, well nourished patient who is awake, alert, jl9 and in no acute distress. Head/Face: Normocephalic, atraumatic. Eyes: Pupils equal round and reactive to light, extra-ocular motions intact. Lids and lashes normal. Conjunctiva and sclera are non-icteric and not injected. Cornea within normal limits. Periorbital areas with no swelling, redness, or edema. ENT: Mucous membranes moist. Neck: Trachea midline, no thyromegaly or masses palpated, and no cervical lymphadenopathy. Supple, full range of motion without nuchal rigidity, or vertebral point tenderness. No Meningismus. Chest/axilla: Normal chest wall appearance and motion. Nontender with no deformity. No lesions are appreciated. Cardiovascular: Regular rate and rhythm with a normal S1 and S2. No gallops, murmurs, or rubs. Normal PMI, no JVD. No pulse deficits. Respiratory: Lungs have equal breath sounds bilaterally, clear to auscultation and percussion. No rales, rhonchi or wheezes noted. No increased work of breathing, no retractions or nasal flaring. Abdomen/GI: Soft, non-tender, with normal bowel sounds. No distension or tympany. No guarding or rebound. No evidence of tenderness throughout. Back: No spinal tenderness. No costovertebral tenderness. Full range of motion. Skin: Warm, dry with normal turgor. Normal color with no rashes, no lesions, and no evidence of cellulitis. MS/ Extremity: Pulses equal, no cyanosis. Neurovascular intact. Full, normal range of motion. Neuro: Awake and alert, GCS 15, oriented to person, place, time, and situation. Cranial nerves II-XII grossly intact. Motor strength 5/5 in all extremities. Sensory grossly intact. Cerebellar exam normal. Normal gait. Psych: Awake, alert, with orientation to person, place and time. Behavior, mood, and affect are within normal limits. Vital Signs: 17:42 BP 136 / 63; Pulse 92; Resp 16; Temp 97.2; Pulse Ox 100% ; Weight 51.26 kg; Height 5 kr3 ft. 1 in. (154.94 cm); Pain 8/10; 18:00 BP 154 / 56; Pulse 75; Resp 16; Temp 97.8; Pulse Ox 99% ; Pain 6/10; ko1 18:45 BP 153 / 61; Pulse 77; Resp 15; Pulse Ox 100% ; jl7 17:42 Body Mass Index 21.35 (51.26 kg, 154.94 cm) kr3 MDM: 17:52 Patient medically screened. jl9 18:02 Data reviewed: vital signs, nurses notes. jl9 18:43 Test interpretation: by ED physician or midlevel provider: ECG, NSR 78bpm. jl9 19:39 Response to treatment: the patient's symptoms have resolved after treatment. jl9 19:41 Counseling: I had a detailed discussion with the patient and/or guardian regarding: [facility] historical points, exam findings, and any diagnostic results supporting the discharge/admit diagnosis, lab results, radiology results, the need for outpatient follow up, Patient reports that she has not been taking her anxiety medications as prescribed but she will from now on. Patient has a GI and PCP follow up on Saturday. Patient asymptomatic and will be discharged. . 01/06 17:54 Order name: CBC with Diff; Complete Time: 19:14 01/06 17:54 Order name: Troponin HS; Complete Time: 19:23 01/06 17:54 Order name: XRAY Chest (1 view); Complete Time: 19:15 01/06 17:54 Order name: CT Head Brain wo Cont; Complete Time: 18:57 01/06 17:54 Order name: CMP; Complete Time: 19:23 01/06 19:38 Order name: Urine Dipstick-Ancillary; Complete Time: 19:38 EDMS 01/06 17:54 Order name: EKG; Complete Time: 17:54 01/06 17:54 Order name: Cardiac monitoring; Complete Time: 18:33 01/06 17:54 Order name: EKG - Nurse/Tech; Complete Time: 18:40 01/06 17:54 Order name: IV Saline Lock; Complete Time: 18:14 01/06 17:54 Order name: Labs collected and sent; Complete Time: 18:44 01/06 17:54 Order name: O2 Per Protocol; Complete Time: 18:00 jl9 01/06 17:54 Order name: O2 Sat Monitoring; Complete Time: 18:00 9 01/06 17:54 Order name: Urine Dipstick-Ancillary (obtain specimen); Complete Time: 19:40 jl9 Administered Medications: No medications were administered Disposition Summary: 01/06/22 19:41 Discharge Ordered Location: Home jl9 Condition: Stable jl9 Diagnosis - Chest pain, unspecified jl9 Followup: jl9 - With: Private Physician - When: 1 - 2 days - Reason: Recheck today's complaints, Continuance of care, Re-evaluation by your physician Discharge Instructions: - Discharge Summary Sheet jl9 - Nonspecific Chest Pain, Adult, [id number] jl9 - Managing Anxiety, Adult jl9 Forms: - Medication Reconciliation Form jl9 - Thank You Letter jl9 - Antibiotic Education jl9 - Prescription Opioid Use jl9 Signatures: Dispatcher [employer] EDMS El Moreno jl9 Rivka Hurst RN RN kr3 Corrections: (The following items were deleted from the chart) 19:40 17:58 This 76 yrs old Female presents to ER via Wheelchair with complaints of jl9 having an episode of anxiety ealier and then she felt her hand get numb for about 10 seconds. Patient denies any current symptoms and denies any pain or distress. . jl9
--- NOTE | 2022-01-06 19:41 | ER ---
Nurse's Notes [facility] Name: Gilda Smith Age: 76 yrs Sex: Female : 1945 Arrival Date: 01/06/2022 Time: 17:41 Bed 7 Private MD: Diagnosis: Chest pain, unspecified Presentation: 01/06 17:42 Chief complaint: Patient states: L arm started tingling for 1 day. BP higher than usual kr3 for 3-4 days. Wants to get her heart checked. Coronavirus screen: Vaccine status: Patient reports receiving the 2nd dose of the covid vaccine. Client denies travel out of the [place] in the last 14 days. At this time, the client does not indicate any symptoms associated with coronavirus-19. Ebola Screen: Patient denies travel to an Ebola-affected area in the 21 days before illness onset. Initial Sepsis Screen: Does the patient meet any 2 criteria? HR > 90 bpm. No. Patient's initial sepsis screen is negative. Does the patient have a suspected source of infection? No. Patient's initial sepsis screen is negative. Risk Assessment: Do you want to hurt yourself or someone else? Patient reports no desire to harm self or others. Onset of symptoms Onset of symptoms was January 03, 2022. 17:42 Method Of Arrival: Wheelchair kr3 17:42 Acuity: TANYA 3 kr3 Triage Assessment: 17:45 General: Appears in no apparent distress. Behavior is calm, cooperative, appropriate kr3 for age. Pain: Complains of pain in abdomen Quality of pain is described as aching, throbbing. Neuro: Reports paresthesias high BP. Historical: - Allergies: 17:42 No Known Allergies; kr3 - PMHx: 17:42 Hypertension; Hypothyroidism; Myocardial infarction; kr3 - PSHx: 17:42 Heart Stents; kr3 - Immunization history:: Client reports receiving the 2nd dose of the Covid vaccine. - Social history:: Smoking status: Patient denies any tobacco usage or history of. Screenin:46 Abuse screen: Denies threats or abuse. Denies injuries from another. Nutritional ko1 screening: No deficits noted. Tuberculosis screening: No symptoms or risk factors identified. Fall Risk IV access (20 points). Assessment: 18:45 General: Appears in no apparent distress. uncomfortable, Behavior is calm, cooperative, jl7 appropriate for age. Pain: Complains of pain in abdomen Pain currently is 8 out of 10 on a pain scale. Neuro: Level of Consciousness is awake, alert, obeys commands, Oriented to person, place, time, situation. Cardiovascular: Patient's skin is warm and dry. Respiratory: Airway is patent Respiratory effort is even, unlabored, Respiratory pattern is regular, symmetrical. Derm: Skin is pink, warm \T\ dry. Vital Signs: 17:42 BP 136 / 63; Pulse 92; Resp 16; Temp 97.2; Pulse Ox 100% ; Weight 51.26 kg; Height 5 kr3 ft. 1 in. (154.94 cm); Pain 8/10; 18:00 BP 154 / 56; Pulse 75; Resp 16; Temp 97.8; Pulse Ox 99% ; Pain 6/10; ko1 18:45 BP 153 / 61; Pulse 77; Resp 15; Pulse Ox 100% ; jl7 17:42 Body Mass Index 21.35 (51.26 kg, 154.94 cm) kr3 ED Course: 17:41 Patient arrived in ED. rg4 17:42 Arm band placed on. kr3 17:45 Triage completed. kr3 17:48 Patient placed in an exam room, on a stretcher. kr3 17:50 Monico Murillo, RN is Primary Nurse. jl7 17:52 El Moreno is PHCP. jl9 17:52 Carlton Velasquez MD is Attending Physician. jl9 18:27 CT Head Brain wo Cont In Process Unspecified. EDMS 18:40 CMP Sent. ko1 18:40 CBC with Diff Sent. ko1 18:40 Troponin HS Sent. ko1 18:45 Client placed on continuous cardiac and pulse oximetry monitoring. NIBP monitoring jl7 applied. 18:46 Patient has correct armband on for positive identification. Bed in low position. Call ko1 light in reach. Side rails up X 1. 18:46 Inserted saline lock: 20 gauge in left antecubital area, using aseptic technique. ko1 18:46 Initial lab(s) drawn, by me, sent to lab. EKG done, by ED staff, reviewed by El Moreno. 18:56 XRAY Chest (1 view) In Process Unspecified. EDMS 19:09 Primary Nurse role handed off by Monico Murillo RN mw2 19:13 Luis A Luevano, RN is Primary Nurse. as6 20:15 No provider procedures requiring assistance completed. IV discontinued, intact, aa9 bleeding controlled, No redness/swelling at site. Pressure dressing applied. Administered Medications: No medications were administered Medication: 18:45 VIS not applicable for this client. ko1 Outcome: 19:41 Discharge ordered by . héctor 20:15 Discharged to home via wheelchair, with family. aa9 20:15 Condition: stable 20:15 Discharge instructions given to patient, Instructed on discharge instructions, follow up and referral plans. Demonstrated understanding of instructions, follow-up care. 20:15 Patient left the ED. aa9 Signatures: Dispatcher [employer] EDMS Virginia Mondragon 4 Monico Murillo, RN RN jl7 Mayito Parrish mw2 Luis A Luevano, RN RN as6 El Moreno jl9 Yoanna Duarte RN RN aa9 Rivka Hurst RN RN palak3 Janet Hernandez, RN RN ko1
[2022-01-06 21:42] VITALS: TEMP 97.8
[2022-01-06 21:47] VITALS: BP 153/61; O2SAT 100
--- NOTE | 2022-01-08 05:40 | EKG ---
Test Date: 2022-01-06 Test Time: 18:43:40 Watch Hairspring Assembler: DEN MEASUREMENT RESULTS: Intervals: Rate: 78 OH: 132 QRSD: 78 QT: 394 QTc: 449 [place]: P: 47 OH: 132 QRS: 66 T: 69 INTERPRETIVE STATEMENTS: Normal sinus rhythm Nonspecific ST and T wave abnormality Abnormal ECG Compared to ECG 12/18/2021 19:59:58 ST (T wave) deviation now present Sinus arrhythmia no longer present Electronically Signed On 01-08-22 05:38:10 CDT by Tom Saavedra
== END 2022-01-06 20:15 | disposition home or self-care (01) ==
LOC: ER 17:40
DX: R07.9 Chest pain, unspecified (principal); I10 Essential (primary) hypertension; I25.2 Old myocardial infarction; Z95.5 Presence of coronary angioplasty implant and graft
CPT/HCPCS: 36415; 70450; 71045; 80053; 81003; 84484; 85025; 93005; 99284

== ENCOUNTER 2023-08-31 19:06 | Emergency (ER) | payer MEDICARE ==
--- NOTE | 2023-08-31 19:58 | RAD REPORT ---
EXAM DESCRIPTION: CT - Head Brain Wo Cont - 08/31/2023 7:46 pm CLINICAL HISTORY: Left facial numbness COMPARISON: Head Brain Wo Cont dated 01/06/2022 TECHNIQUE: All CT scans are performed using dose optimization technique as appropriate and may inclu de automated exposure control or mA/KV adjustment according to patient size. FINDINGS: No intracranial hemorrhage, hydrocephalus or extra-axial fluid collection.No areas of brai n edema or evidence of midline shift. Cerebral atrophy. The paranasal sinuses and mastoids are clear. The calvarium is intact. IMPRESSION: No acute intracranial abnormality.
[2023-08-31] MEDS ORDERED: cloNIDine HCL 0.1 MG TAB ONE (20:24)
[2023-08-31] MEDS ORDERED: ALPRAZOLAM 0.5 MG TABLET ONE (21:29)
[2023-08-31 21:35] LABS: Absolute Eosinophils 0.1 K/uL (0-0.5); Absolute Lymphocytes (CBC) 1.5 K/uL (0.7-4.9); Absolute Monocytes 0.5 K/uL (0.1-1.3); Absolute Neutrophil 3.2 K/uL (1.8-8.0); Basophils % 0.7 % (0-1.3); Eosinophils % 2.6 % (0-4.4); Hematocrit 35.7 % (36.0-45.0); Hemoglobin 12.2 g/dL (12.0-15.0); Lymphocytes % 27.5 % (15.3-44.8); MCH 31.4 pg (27.0-35.0); MCHC 34.2 g/dL (32.0-36.0); MCV 91.9 fL (80-100); MPV 9.4 fL (7.6-11.3); Neutrophils % 59.2 % (41.7-73.7); Platelets 179 thou/uL (152-406); RBC Red Blood Cell Count 3.89 M/uL (3.86-4.86); Red Cell Distribution Width 13.5 % (12.1-15.2)
[2023-08-31 21:51] LABS: Anion Gap 7.2 mEq/L (5.0-15.0); Potassium 4.2 mEq/L (3.5-5.1)
--- NOTE | 2023-08-31 22:18 | EDPHYS ---
Physician Documentation [facility] Name: Gilda Smith Age: 78 yrs Sex: Female : 1945 Arrival Date: 08/31/2023 Time: 19:06 Bed 3 Private MD: ED Physician Emilio Ramos HPI: 08/30 19:21 This 78 yrs old Female presents to ER via Ambulatory with complaints of ms3 Numbness Of Face. 19:21 78-year-old female with past medical history of hypertension, hypothyroidism, ms3 myocardial infarction presents to the emergency department for left lower facial numbness that began 1 hour prior to arrival. Patient denies weakness. Patient states she did take an 81 mg aspirin prior to arrival. Patient notes she was seen 2 days ago at urgent care for pain. Patient has experienced numbness in bilateral lower jaws previously when she had COVID. Patient states she currently has 8/10 back and side pain. Patient denies any alleviating or inciting factors.. Historical: - Allergies: 19:17 Codeine; km8 - PMHx: 19:17 Hypertension; Hypothyroidism; Myocardial infarction; km8 - PSHx: 19:17 Heart Stents; km8 - Immunization history:: Adult Immunizations up to date. - Infectious Disease History:: Denies. - Social history:: Smoking status: Patient denies any tobacco usage or history of. ROS: 19:21 Constitutional: Negative for fever, and chills. Neck: Negative for injury, pain, and ms3 swelling, Cardiovascular: Negative for chest pain, and palpitations. Respiratory: Negative for shortness of breath, cough, wheezing, and pleuritic chest pain, Abdomen/GI: Negative for abdominal pain, nausea, vomiting, diarrhea, and constipation, MS/Extremity: Negative for injury and deformity, Skin: Negative for injury, rash, and discoloration, 19:21 Neuro: Positive for Left facial numbness, Exam: 19:21 Constitutional: This is a well developed, well nourished patient who is awake, alert, ms3 and in no acute distress. Head/Face: Normocephalic, atraumatic. Decreased sensation left lower face Neck: Trachea midline, no cervical lymphadenopathy. Supple, full range of motion without nuchal rigidity, or vertebral point tenderness. No Meningismus. Chest/axilla: Normal chest wall appearance and motion. Nontender with no deformity. Cardiovascular: Regular rate and rhythm with a normal S1 and S2. No gallops, murmurs, or rubs. Normal PMI, no JVD. No pulse deficits. Respiratory: Lungs have equal breath sounds bilaterally, clear to auscultation and percussion. No rales, rhonchi or wheezes noted. No increased work of breathing, no retractions or nasal flaring. 20:37 ECG was reviewed by the Attending Physician. ms3 22:21 Radiologist reports: No acute abnormalities ms3 Vital Signs: 19:15 BP 226 / 85; Pulse 83; Resp 18; Pulse Ox 98% on R/A; Weight 58.97 kg (R); Height 5 ft. km8 2 in. (R); Pain 7/10; 20:22 BP 235 / 84; Pulse 62; Resp 13; Pulse Ox 98% on R/A; Pain 0/10; tm6 21:40 BP 214 / 78; Pulse 66; Resp 15; Pulse Ox 98% on R/A; Pain 0/10; tm6 22:29 BP 188 / 68; Pulse 54; Resp 13; Temp 97.7(TE); Pulse Ox 94% on R/A; Pain 0/10; tm6 19:15 Body Mass Index 23.78 (58.97 kg, 157.48 cm) km8 19:15 Pain Scale: Adult km8 20:22 Pain Scale: Adult tm6 21:40 Pain Scale: Adult tm6 22:29 Pain Scale: Adult tm6 NIH Stroke Scale Scores: 20:37 NIHSS Score: 0 ms3 MDM: 19:21 Patient medically screened. ms3 19:21 Differential diagnosis: CVA, Peripheral neuropathy vs Parotiditis. ms3 22:18 Data reviewed: vital signs, nurses notes, lab test result(s), EKG, radiologic studies, ms3 and as a result, I will discharge patient. I considered the following discharge prescriptions or medication management in the emergency department Medications were administered in the Emergency Department. See MAR. Independent interpretation of the following test(s) in the Emergency Department EKG: See my EKG interpretation above compliance monitor: rate is 54 beats/min, Rhythm is sinus bradycardia, with no ectopy, Interpretation: bradycardia. Care significantly affected by the following chronic conditions: Hypertension. Counseling: I had a detailed discussion with the patient and/or guardian regarding the historical points, exam findings, and any diagnostic results supporting the discharge/admit diagnosis, lab results, radiology results, the need for outpatient follow up, to return to the emergency department if symptoms worsen or persist or if there are any questions or concerns that arise at home. ED course: Discussed CT head, labs with patient. Patient to follow-up with primary care physician in 2 to 3 days. Patient understands and agrees with plan. All questions were answered. Return precautions discussed include worsening symptoms, or any other concerns. On reevaluation NIH remains 0. Patient is alert and oriented x 4, no apparent distress, nontoxic-appearing, speaking full sentences. 08/30 19:21 Order name: CBC with Diff; Complete Time: 21:46 ms3 08/30 19:21 Order name: BMP; Complete Time: 21:58 ms3 08/30 19:21 Order name: CT Head Brain wo Cont; Complete Time: 20:20 ms3 08/30 22:21 Interpretation: No acute disease. ms3 08/30 19:21 Order name: EKG; Complete Time: 19:21 ms3 08/30 19:21 Order name: EKG - Nurse/Tech; Complete Time: 19:58 ms3 EC:37 Rate is 77 beats/min. Rhythm is regular. QRS [place] is Normal. AR interval is normal. QRS ms3 interval is normal. Clinical impression: NSR w/ Non-specific ST/T Changes. Interpreted by me. Reviewed by me. Administered Medications: 20:26 Drug: cloNIDine PO 0.1 mg PO once Route: PO; tm6 22:01 Follow up: Response: No adverse reaction bm8 21:32 Drug: ALPRAZolam PO Tablet 0.5 mg PO once Route: PO; tm6 22:01 Follow up: Response: No adverse reaction bm8 Disposition Summary: 08/31/23 22:18 Discharge Ordered Notes: Location: Home ms3 Condition: Stable ms3 Diagnosis - Left Facial Paresthesia ms3 - Essential (primary) hypertension ms3 Discharge Instructions: - Discharge Summary Sheet ms3 - Hypertension, Adult ms3 - Paresthesia, [id number] ms3 Forms: - Medication Reconciliation Form ms3 - Antibiotic Education ms3 - Prescription Opioid Use ms3 - Patient Portal Instructions ms3 - Leadership Thank You Letter ms3 NIH Stroke Scale - NIH Stroke Score Date: 08/31/2023 Time: 20:37 Total Score = 0 10. Dysarthria (speech clarity - read or repeat words) - 0(Normal) 11. Extinction and Inattention (visual/tactile/auditory/spatial/personal) - 0(No abnormality) 1a. Level of Consciousness (LOC) - 0(Alert) 1b. Level of Consciousness (LOC) (Month \T\ Age) - 0(Both) 1c. LOC Commands (Open \T\ Closes Eyes/Casket Trimmer) - 0(Both) 2. Best Gaze (Lateral Gaze Paresis) - 0(Normal) 3. Visual Field Loss - 0(No visual loss) 4. Facial Palsy - 0(Normal) 5a. Left Arm: Motor (10-second hold) - 0(No drift) 5b. Right Arm: Motor (10-second hold) - 0(No drift) 6a. Left Leg: Motor (5-second hold - always test supine) - 0(No drift) 6b. Right Leg: Motor (5-second hold - always test supine) - 0(No drift) 7. Limb Ataxia (finger/nose \T\ heel/anderson - test with eyes open) - 0(Absent) 8. Sensory Loss (pinprick arms/legs/face) - 0(Normal) 9. Best Language: Aphasia (description/naming/reading) - 0(No aphasia) Initials: ms3 Signatures: Dispatcher [employer] EDEmilio Lopez DO DO ms3 Alida Interiano RN RN km8 Addy Tay RN RN tm6 Torey Atwood RN bm8
--- NOTE | 2023-08-31 22:18 | ER ---
Nurse's Notes [facility] Name: Gilda Smith Age: 78 yrs Sex: Female : 1945 Arrival Date: 08/31/2023 Time: 19:06 Bed 3 Private MD: Diagnosis: Left Facial Paresthesia;Essential (primary) hypertension Presentation: 08/30 19:12 Chief complaint: Patient states: numbness to left lower side of face starting 1 hour km8 ago; denies any other deficits; states she felt bad yesterday. Coronavirus screen: Client denies travel out of the [place] in the last 14 days. Ebola Screen: No symptoms or risks identified at this time. Initial Sepsis Screen: Does the patient meet any 2 criteria? HR > 90 bpm. Does the patient have a suspected source of infection? No. Patient's initial sepsis screen is negative. Risk Assessment: Do you want to hurt yourself or someone else? Patient reports no desire to harm self or others. Onset of symptoms was August 31, 2023 at 18:10. 19:12 Method Of Arrival: Ambulatory km8 19:15 Acuity: TANYA 2 km8 Triage Assessment: 19:12 General: Appears in no apparent distress. uncomfortable, Behavior is calm, cooperative, km8 appropriate for age. Pain: Complains of pain in left jaw Pain currently is 7 out of 10 on a pain scale. EENT: No signs and/or symptoms were reported regarding the EENT system. Neuro: Level of Consciousness is awake, alert, obeys commands, Oriented to person, place, time, situation, Reports numbness in left jaw. Cardiovascular: Denies chest pain, shortness of breath, Patient's skin is warm and dry. Respiratory: Airway is patent Respiratory effort is even, unlabored, Respiratory pattern is regular, symmetrical. GI: No signs and/or symptoms were reported involving the gastrointestinal system. : No signs and/or symptoms were reported regarding the genitourinary system. Derm: No signs and/or symptoms reported regarding the dermatologic system. Skin is intact, is healthy with good turgor, Skin is dry, Skin is pink, warm \T\ dry. normal, Skin temperature is warm. Musculoskeletal: Range of motion: intact in all extremities, Reports numbness in left jaw. Historical: - Allergies: 19:17 Codeine; km8 - PMHx: 19:17 Hypertension; Hypothyroidism; Myocardial infarction; km8 - PSHx: 19:17 Heart Stents; km8 - Immunization history:: Adult Immunizations up to date. - Infectious Disease History:: Denies. - Social history:: Smoking status: Patient denies any tobacco usage or history of. Screenin:07 [facility] ED Fall Risk Assessment (Adult) History of falling in the last 3 months, tm6 including since admission No falls in past 3 months (0 pts) Confusion or Disorientation No (0 pts) Intoxicated or Sedated No (0 pts) Impaired Gait No (0 pts) Mobility Assist Device Used No (0 pt) Altered Elimination No (0 pt) Score/Fall Risk Level 0 - 2 = Low Risk Oriented to surroundings, Maintained a safe environment. Abuse screen: Denies threats or abuse. Denies injuries from another. Nutritional screening: No deficits noted. Tuberculosis screening: No symptoms or risk factors identified. Assessment: 20:07 General: Appears uncomfortable, Behavior is calm, cooperative. Pain: Complains of pain tm6 in back and face and left jaw. Cardiovascular: Patient's skin is warm and dry. Rhythm is sinus rhythm. Respiratory: Airway is patent Trachea Respiratory effort is even, unlabored, Respiratory pattern is regular, symmetrical. GI: No signs and/or symptoms were reported involving the gastrointestinal system. Abdomen is flat, non-distended. : No signs and/or symptoms were reported regarding the genitourinary system. EENT: No signs and/or symptoms were reported regarding the EENT system. Derm: No signs and/or symptoms reported regarding the dermatologic system. Musculoskeletal: Reports numbness in face and left jaw pain in back. 20:22 Pain: Pain does not radiate. Pain currently is 2 out of 10 on a pain scale. Quality of tm6 pain is described as aching, numb. Neuro: Level of Consciousness is awake, alert, obeys commands, Oriented to person, place, time, situation, Reports numbness in face and left jaw. 21:41 Reassessment: Patient appears in no apparent distress at this time. General: Behavior tm6 is anxious. 22:29 Reassessment: Patient and/or family updated on plan of care and expected duration. Pain tm6 level reassessed. Patient is alert, oriented x 3, equal unlabored respirations, skin warm/dry/pink. Vital Signs: 19:15 BP 226 / 85; Pulse 83; Resp 18; Pulse Ox 98% on R/A; Weight 58.97 kg (R); Height 5 ft. km8 2 in. (R); Pain 7/10; 20:22 BP 235 / 84; Pulse 62; Resp 13; Pulse Ox 98% on R/A; Pain 0/10; tm6 21:40 BP 214 / 78; Pulse 66; Resp 15; Pulse Ox 98% on R/A; Pain 0/10; tm6 22:29 BP 188 / 68; Pulse 54; Resp 13; Temp 97.7(TE); Pulse Ox 94% on R/A; Pain 0/10; tm6 19:15 Body Mass Index 23.78 (58.97 kg, 157.48 cm) km8 19:15 Pain Scale: Adult km8 20:22 Pain Scale: Adult tm6 21:40 Pain Scale: Adult tm6 22:29 Pain Scale: Adult tm6 NIH Stroke Scale Scores: 20:37 NIHSS Score: 0 ms3 ED Course: 19:07 Patient arrived in ED. rg4 19:11 Emilio Ramos DO is Attending Physician. ms3 19:12 Arm band placed on right wrist. km8 19:16 Triage completed. km8 19:30 Addy Tay, NETTE is Primary Nurse. tm6 19:47 CT Head Brain wo Cont In Process Unspecified. EDMS 19:57 Door closed. Noise minimized. Warm blanket given. tm6 19:57 EKG done, by ED staff, reviewed by Emilio Ramos DO. tm6 20:07 Patient has correct armband on for positive identification. Placed in gown. Bed in low tm6 position. Call light in reach. Side rails up X 1. Provided Education on: plan of care. Client placed on continuous cardiac and pulse oximetry monitoring. NIBP monitoring applied. foreign car mechanic on. Pulse ox on. NIBP on. 20:22 CBC with Diff Sent. tm6 20:22 BMP Sent. tm6 20:57 Warm blanket given. oe 22:29 No provider procedures requiring assistance completed. IV discontinued, intact, tm6 bleeding controlled, No redness/swelling at site. Pressure dressing applied. Administered Medications: 20:26 Drug: cloNIDine PO 0.1 mg PO once Route: PO; tm6 22:01 Follow up: Response: No adverse reaction bm8 21:32 Drug: ALPRAZolam PO Tablet 0.5 mg PO once Route: PO; tm6 22:01 Follow up: Response: No adverse reaction bm8 Medication: 20:07 VIS not applicable for this client. tm6 Outcome: 22:18 Discharge ordered by MD. ms3 22:36 Discharged to home via wheelchair, with family, tm6 22:36 Condition: stable 22:36 Discharge instructions given to patient, Instructed on discharge instructions, Demonstrated understanding of instructions, 22:36 Patient left the ED. tm6 NIH Stroke Scale - NIH Stroke Score Date: 08/31/2023 Time: 20:37 Total Score = 0 10. Dysarthria (speech clarity - read or repeat words) - 0(Normal) 11. Extinction and Inattention (visual/tactile/auditory/spatial/personal) - 0(No abnormality) 1a. Level of Consciousness (LOC) - 0(Alert) 1b. Level of Consciousness (LOC) (Month \T\ Age) - 0(Both) 1c. LOC Commands (Open \T\ Closes Eyes/Developer Evangelist) - 0(Both) 2. Best Gaze (Lateral Gaze Paresis) - 0(Normal) 3. Visual Field Loss - 0(No visual loss) 4. Facial Palsy - 0(Normal) 5a. Left Arm: Motor (10-second hold) - 0(No drift) 5b. Right Arm: Motor (10-second hold) - 0(No drift) 6a. Left Leg: Motor (5-second hold - always test supine) - 0(No drift) 6b. Right Leg: Motor (5-second hold - always test supine) - 0(No drift) 7. Limb Ataxia (finger/nose \T\ heel/anderson - test with eyes open) - 0(Absent) 8. Sensory Loss (pinprick arms/legs/face) - 0(Normal) 9. Best Language: Aphasia (description/naming/reading) - 0(No aphasia) Initials: ms3 Signatures: Dispatcher [employer] EDMS Virginia Mondragon [place] oe Sims, Marcus, DO DO ms3 Alida Interiano, RN RN km8 Addy Tay RN RN tm6 Atwood, Torey, RN RN bm8
[2023-08-31 22:50] VITALS: BP 188/68; TEMP 97.7; O2SAT 94
--- NOTE | 2023-09-02 14:42 | EKG ---
Test Date: 2023-08-31 Test Time: 19:53:33 Parts Data Writer: THUAN MEASUREMENT RESULTS: Intervals: Rate: 77 AL: 166 QRSD: 90 QT: 448 QTc: 506 [place]: P: 66 AL: 166 QRS: 74 T: 72 INTERPRETIVE STATEMENTS: Normal sinus rhythm ST & T wave abnormality, consider lateral ischemia Prolonged QT Abnormal ECG Compared to ECG 01/06/2022 18:43:40 Possible ischemia now present Prolonged QT interval now present ST (T wave) deviation still present Electronically Signed On 09-02-23 14:38:26 CDT by Luis Spears
== END 2023-08-31 22:36 | disposition home or self-care (01) ==
LOC: ER 19:06
DX: R20.2 Paresthesia of skin (principal); I10 Essential (primary) hypertension; R29.700 NIHSS score 0; I25.2 Old myocardial infarction; Z88.5 Allergy status to narcotic agent; Z95.818 Presence of other cardiac implants and grafts
CPT/HCPCS: 36415; 70450; 80048; 85025; 93005; 99284